=== PATIENT | male | born 1950 | race Caucasian/White ===

== ENCOUNTER 2024-01-29 09:37 | Outpatient (OUT) | payer OTHER, SELFPAY ==
--- NOTE | 2024-01-29 09:47 | CA_ITS ---
Patient Name: CHERYL MANN MR#: [id number] : 1950 Exam Date: 01/29/2024 Ordering Doctor: LAWSON VALDOVINOS ECHOCARDIOGRAM REPORT PROCEDURE: CA ECHO DOPPLER COMPLETE INDICATIONS: Aortic stenosis COMPARISON: None. DESCRIPTION: COMPLETE ECHOCARDIOGRAM Real-time transthoracic echocardiography with 2D, M-mode, spectral and color flow Doppler performed. QUALITY: Technical quality was good. LEFT VENTRICLE: Normal chamber size. Mild concentric left ventricular hypertrophy. Normal systolic function. LV EF: Normal left ventricular ejection fraction, (55%). DIASTOLIC: Mild diastolic dysfunction. ATRIAL SEPTUM: LEFT ATRIUM: Mild dilatation. RIGHT ATRIUM: Mild dilatation. RIGHT VENTRICLE: Normal chamber size. Normal right ventricular systolic function. TRICUSPID VALVE: Normal mobility and thickness. No stenosis with trivial regurgitation. No evidence of pulmonary hypertension. RVSP 23 mmHg MITRAL VALVE: Moderately thickened with decreased mobility. No significant mitral valve stenosis. Mild mitral annular calcification. Mild to moderate mitral regurgitation. MVA 4.7 cm2, Mean gradient 5 mmHg, AORTIC VALVE: Normal trileaflet appearance. Moderately calcified aortic valve. Moderately diminished mobility. Doppler velocity suggest moderate aortic valve stenosis. DVI 0.33, WILLIAM 1.14 cm2, Vmax 2.2 m/s, Mean gradient 12 mmHg. No aortic regurgitation. AORTIC ROOT: Normal diameter and appearance, measuring 3.5 cm. Normal size ascending aorta measuring 3.5 cm. PULMONIC VALVE: Normal thickness and mobility. No stenosis. Trivial regurgitation. PERICARDIUM: No evidence of pericardial effusion. IVC: Collapses with inspirations. Normal size. PLEURA: CONCLUSION: 1. Mild concentric left ventricular hypertrophy with normal systolic function. LVEF is 55%. 2. Normal right ventricular size and systolic function. 3. Mild diastolic dysfunction. 4. Moderate aortic valve stenosis. 5. Mild to moderate mitral regurgitation. 6. Normal right-sided pressures. Adult Echocardiography Procedure Report Left Ventricle LVEDD (3.7 - 5.6 cm): 3.82 cm LVESD (2.2 - 4.0 cm): 2.65 cm LVIVS thickness (0.6 - 1.2 cm): 1.33 cm LVPW thickness (0.5 - 1.0 cm): 1.17 cm e': 0.05 m/s E - e': 24.72 LVOT Max Gradient: 2.14 mm[Hg] LVOT Area (cm2): 0.73 m/s Peak Velocity (LVOT): 0.73 m/s Mean Velocity (LVOT): 0.50 m/s LVOT Diameter 2.1 cm Left Ventricular Ejection Fraction: 55 % Left Atrium LA Volume Index (2D A2C): 34.14 ml/m2 Left Atrium Systolic Dimension: 3.44 cm Mitral Valve MV E to A Ratio: 0.76 Mitral Valve A-Wave Peak Velocity: 1.56 m/s Mitral Valve E-Wave Peak Velocity: 1.18 m/s Right Ventricle RV Internal Diastolic Dimension: 2.51 cm Aorta AO Root Diam: 3.49 cm Ascending Ao Diam: 3.46 cm Aortic Valve AoV Area (Peak Sebastian): 0.75 cm2, 0.79 cm2 AoV Area (VTI): 0.87 cm2, 0.86 cm2 Peak Velocity(Antegrade Flow): 2.21 m/s, 2.36 m/s, 2.43 m/s, 2.36 m/s Peak Gradient(Antegrade Flow): 19.60 mm[Hg], 22.32 mm[Hg], 23.69 mm[Hg], 22.32 mm[Hg] Mean Velocity(Antegrade Flow): 1.67 m/s, 1.81 m/s, 1.83 m/s, 1.68 m/s Mean Gradient(Antegrade Flow): 12.31 mm[Hg], 14.29 mm[Hg], 14.63 mm[Hg], 12.51 mm[Hg] Velocity Time Integral: 47.43 cm, 47.00 cm, 48.54 cm, 45.04 cm Tricuspid Valve Peak Velocity (Regurgitant Flow): 2.22 m/s, 2.10 m/s, 2.13 m/s Pulmonic Valve Mean Gradient: 2.05 mm[Hg] Mean Velocity: 0.66 m/s Peak Velocity: 0.97 m/s, 1.03 m/s Peak Gradient: 4.26 mm[Hg], 3.74 mm[Hg] Right Atrium Right Atrium Systolic Pressure: 22.44 ml, 22.44 ml Dictated by: Gerry Tariq M.D. on 01/29/2024 at 18:13 Approved by: Gerry Tariq M.D. on 01/29/2024 at 18:22
== END 2024-01-29 09:38 | disposition home or self-care (01) ==
PROVIDERS: PCP Family Medicine; Visit Provider Family Medicine
DX: I35.0 Nonrheumatic aortic (valve) stenosis (principal)
CPT/HCPCS: 93306; 93356

== ENCOUNTER 2024-05-22 12:44 | Outpatient (OUT) | payer OTHER, SELFPAY ==
--- NOTE | 2024-05-22 12:48 | CT_ITS ---
The [address] [address] Patient Name: CHERYL MANN MRN: [id number] date: 1950 Sex: M Assigned Patient Location: CT Current Patient Location: Accession/Order Number: [id number] Exam Date: 05/22/2024 13:48 Report Date: 05/25/2024 17:45 At the request of: NON-STAFF PHYSICIAN Procedure: CT chest wo con EXAMINATION: CT chest wo con, CT abdomen pelvis wo con, 05/22/2024 1:48 PM EDT HISTORY: Prostate cancer, rising PSA COMPARISON: CT chest, abdomen and pelvis dated 10/12/2020. No recent imaging is available for comparison. TECHNIQUE: CT scan of the chest, abdomen and pelvis was performed without IV contrast. Oral contrast was administered. CT dose reduction technique was used, including Automated Exposure Control. FINDINGS: Chest Thyroid gland appears unremarkable. Trachea and mainstem bronchi are patent. There is no mediastinal or axillary adenopathy. Evaluation for hilar adenopathy is limited due to the lack of intravenous contrast. There are mild emphysematous changes within the lungs. There are a few new solid noncalcified lung nodules, measuring up to 4.6 mm within right middle lobe. There is no pleural or pericardial effusion. There is no lung consolidation. There is no aortic aneurysm. Aortic valve, mitral annulus and coronary arteries are heavily calcified. There are advanced multilevel arthritic changes of the thoracic spine. Abdomen and pelvis There are small layering gallstones. There is a 5 mm nonobstructing left kidney upper pole calculus and a 15 mm left kidney interpolar region cyst. There is also suggestion of subcentimeter right kidney interpolar region cyst. Unenhanced liver, spleen, pancreas and adrenal glands are normal. Bowel loops are normal in course and caliber, there is no obstruction or free air. Appendix is normal. There is suggestion of prior prostatectomy. There is no ascites or adenopathy. There is severe aortoiliac atherosclerotic disease. There are advanced multilevel arthritic changes of the lumbar spine. No suspicious osseous lesion is noted. CT/CT chest wo con IMPRESSION: 1. New sub-5 mm solid noncalcified lung nodules. Follow-up chest CT scan is recommended in 6 months for reassessment. 2. No definite evidence of malignancy within the upper abdomen and pelvis on this limited noncontrast exam. 3. Cholelithiasis. Electronically authenticated by: BO REYNOLDS Date: 05/25/2024 17:45
--- NOTE | 2024-05-22 12:48 | CT_ITS ---
[address] [address] Patient Name: CHERYL MANN MRN: [id number] date: 1950 Sex: M Assigned Patient Location: CT Current Patient Location: Accession/Order Number: [id number] Exam Date: 05/22/2024 13:48 Report Date: 05/25/2024 17:45 At the request of: NON-STAFF PHYSICIAN Procedure: CT abdomen pelvis wo con EXAMINATION: CT chest wo con, CT abdomen pelvis wo con, 05/22/2024 1:48 PM EDT HISTORY: Prostate cancer, rising PSA COMPARISON: CT chest, abdomen and pelvis dated 10/12/2020. No recent imaging is available for comparison. TECHNIQUE: CT scan of the chest, abdomen and pelvis was performed without IV contrast. Oral contrast was administered. CT dose reduction technique was used, including Automated Exposure Control. FINDINGS: Chest Thyroid gland appears unremarkable. Trachea and mainstem bronchi are patent. There is no mediastinal or axillary adenopathy. Evaluation for hilar adenopathy is limited due to the lack of intravenous contrast. There are mild emphysematous changes within the lungs. There are a few new solid noncalcified lung nodules, measuring up to 4.6 mm within right middle lobe. There is no pleural or pericardial effusion. There is no lung consolidation. There is no aortic aneurysm. Aortic valve, mitral annulus and coronary arteries are heavily calcified. There are advanced multilevel arthritic changes of the thoracic spine. Abdomen and pelvis There are small layering gallstones. There is a 5 mm nonobstructing left kidney upper pole calculus and a 15 mm left kidney interpolar region cyst. There is also suggestion of subcentimeter right kidney interpolar region cyst. Unenhanced liver, spleen, pancreas and adrenal glands are normal. Bowel loops are normal in course and caliber, there is no obstruction or free air. Appendix is normal. There is suggestion of prior prostatectomy. There is no ascites or adenopathy. There is severe aortoiliac atherosclerotic disease. There are advanced multilevel arthritic changes of the lumbar spine. No suspicious osseous lesion is noted. CT/CT abdomen pelvis wo con IMPRESSION: 1. New sub-5 mm solid noncalcified lung nodules. Follow-up chest CT scan is recommended in 6 months for reassessment. 2. No definite evidence of malignancy within the upper abdomen and pelvis on this limited noncontrast exam. 3. Cholelithiasis. Electronically authenticated by: BO REYNOLDS Date: 05/25/2024 17:45
--- OUTSIDE RECORDS SUMMARY | 2024-05-22 12:56 | XMS_ITS | CCD ---
Author Organization [facility] Care Team Providers Care Polishing Machine Operator Name Role Phone JESUS ERICKSON Unavailable Unavailabl e GEORGINA, JESUS Unavailable Unavailabl RAINA Watkins Unavailable Unavailable MICHELINE PETERSON Unavailable Unavailable LAWSON VIDES Primary Care Physician Ksenia Magdaleno Unavailable Unavailable Lawson Bolanos Primary Care Provider DO Lawson Vides Primary Care Provider DO Rodo Garcia Emergency Provider Rodo Garcia Attending Unavailable Rodo Garcia Admitting Unavailable Lawson Vides Primary Care Unavailable LAWSON INFANTE Referring Unavailable POCMANJEET, LAWSON Castro Attending Unavailable KIZZY ESPINOSA Attending Unavailable POCMANJEET, LAWSON Castro Referring Unavailable KIZZY ESPINOSA Attending Unavailable POCOS, LAWSON Castro Referring Unavailable KIZZY ESPINOSA Attending Unavailable POCLAWSON BURROUGHS Referring Unavailable LAWSON INFANTE Attending Unavailable Medications Current Medications Medication Drug Class(es) Dates Sig (Normalized) Sig (Original) aspirin 81 mg delayed release oral tablet (2 sources) Platelet Aggregation Inhibitor, Nonsteroidal Anti-inflammatory Drug Start: 06-08-2022 take 1 tablet by mouth once daily Aspirin (Aspir-81) 81 mg Tablet,Delayed Release (Dr/Ec) Active 81 MG PO Daily June 08, 2022 12:00am aspirin, enteric coated (ADULT LOW DOSE ASPIRIN) 81 mg EC tablet Take 81 mg by mouth every other day. 0 Active Comment on above: Take 81 mg by mouth every other day. atorvastatin 20 mg oral tablet (2 sources) HMG-CoA Reductase Inhibitor Start: 2 take 1 tablet by mouth once daily Atorvastatin (Lipitor) 20 mg Tablet Active 20 MG PO Daily June 08, 2022 12:00am take 1 tablet by mouth once caitlin y atorvastatin (LIPITOR) 80 mg tablet Take 80 mg by mouth once daily. 0 Active Comment on above: Take 80 mg by mouth once daily. Completed/Discontinued Medications Medication Drug Class(es) Dates Sig (Normalized) Sig (Original) MULTIVITAMIN ORAL (1 source) MULTIVITAMIN ORA L Take by mouth. 0 Active Comment on above: Take by mouth. Huuaq-2-XQA-EPA-Fish Oil (FISH OIL) 1,000 mg (120 mg-180 mg) cap (1 source) take 1 capsule by mouth twice daily Yzvic-4-LUL-EPA-Fish Oil (FISH OIL) 1,000 mg (120 mg-180 mg) cap Take 2 g by mouth twice daily. 0 Active Comment on above: Take 2 g by mouth tw ice daily. ubidecarenone 100 mg oral capsule (1 source) coenzyme Q10 (COQ-10) 100 mg cap capsule Take 100 mg by mouth twice daily. 0 Active Comment on above: Take 100 mg by mouth twice daily. vitamin e 450 mg oral capsule (1 source) vitamin E, dl,tocopheryl acet, (VITAMIN E, DL, ACETATE,) 1,000 unit cap Take by mouth. 0 Active Comment on above: Take by mouth. Problems Active Problems Problem Classification Problem Date Documented Da te Episodic/Chronic Abdominal pain (4 sources) Unspecified abdominal pain; Translations: [UNSPECIFIED ABDOMINAL PAIN] Onset: 07-27-2017 Episodic Calculus of urinary tract (1 source) Calculus of ureter; Translations: [CALCULUS OF URETER] Onset: 11-14-2017 Episodic Headache; including migraine (1 source) Headache; Translations: [Headache] 06-08-2022 Episodic Headache; including migraine (1 source) Headache; including migraine; Translations: [Headache, unspecified] Onset: 06-08-2022 Other gastrointestinal disorders (1 source) Diarrhea, unspecified; Translations: [DIARRHEA UNSPECIFIED] Onset: 11-14-2017 Episodic Other liver diseases (1 source) Abnormal levels of other serum enzymes; Translations: [ABNORMAL LEVELS OTHER SERUM ENZYMES] Onset: 11-14-2017 Episodic Past or Other Problems Problem Classification Problem Date Documented Da te Episodic/Chronic Cardiac dysrhythmias (2 sources) Palpitations; Translations: [Palpitations] Onset: 06-08-2022 06-08-2022 Episodic Other circulatory disease (1 source) Elevated blood-pressure reading, without diagnosis of hypertension; Translations: [Elevated blood-pressure reading, without diagnosis of hypertension] Onset: 06-08-2022 Episodic Results Test Name Value Interpretation Reference Range Facility Activated partial thrombopla stin time (aPTT) in platelet poor plasma by coagulation aOrdered By: Rodo Garcia on 06-08-2022 aPTT Coag (PPP) [Time] 29.8 s 25.1-36.5 [facility] Albumin [Mass/volume] in Ser um or PlasmaOrdered By: Rodo Garcia on 06-08-2022 Albumin [Mass/Vol] 4.1 g/dL 3.2-5.5 [facility] Basophils Auto (Bld) [#/Vol] Ordered By: Rodo Garcia on 06-08-2022 Basophils (Bld) [#/Vol] 0.0 10*3/uL 0.0-0.2 [facility] Basophils/100 WBC Auto (Bld) Ordered By: Rodo Garcia on 06-08-2022 Basophils/100 WBC (Bld) 0.3 % . [facility] CT angio chest PE protocolon 06-08-2022 CT angio chest PE protocol [facility] [place] [address] CT Scan Report Signed Patient: Dung Mann MR#: [id number] 80 : 1950 Acct:[id number] Age/Sex: 72 / M ADM Date: 06/08/22 Loc: ER Room: Type: [facility] ER Attending Dr: Copies to: Rodo Garcia DO Ordering Provider: Rodo Garcia DO Date of Service: 06/08/22 CT/CT angio chest PE protocol: palpitations elevated d-deirm CT ANGIOGRAM OF THE CHEST, PULMONARY EMBOLISM PROTOCOL: CLINICAL INFORMATION: Chest pain radiating to left arm. Elevated d-dimer COMPARISON: Chest performed today TECHNIQUE: Following intravenous injection of contrast CT scans of the chest were obtained using pulmonary embolism protocol. Coronal and sagittal reconstructed images, as well as volume rendered CT pulmonary angiographic images were also submitted.The CT exam was performed using one or more of the following dose reduction techniques: Automated exposure control, adjustment of the MA and/or Kv according to patient size, or use of the iterative reconstruction technique. FINDINGS: Pulmonary Vasculature: Contrast bolus is adequate for evaluation of pulmonary embolism. Pulmonary trunk appears nondilated. No filling defects are identified to suggest pulmonary embolism. Mediastinum : Thoracic aorta is normal in caliber. No pericardial effusion. No lymphadenopathy. The esophagus is grossly unremarkable. Lungs: No focal consolidation, pneumothorax or pleural effusion. Mild reticular change. Mild lung scarring. Mild emphysema. Upper abdomen: No acute findings Soft tissue/bones: Soft tissues surrounding the chest wall demonstrate no acute findings. Osseous structures demonstrate degenerative change. CT/CT angio chest PE protocol IMPRESSION: NO EVIDENCE OF ACUTE PULMONARY EMBOLISM OR PROCESS. Impression dictated by: Micky Mims Jr., D.OKvng06/08/2022 3:25 PM Dictation Location: [place] [address] Transcribed By: [facility] 06/08/22 1525 Dictated By: Micky Mims Jr, DO 06/08/22 1520 Signed By: 06/08/[address] [facility] [address] head/brain wo conon 06-08 CT head/brain wo con [facility] [place] [address] [place] [address] CT Scan Report Signed Patient: Dung Mann MR#: [id number] 80 : 1950 Acct:[id number] Age/Sex: 72 / M ADM Date: 06/08/22 Loc: ER Room: Type: [facility] ER Attending Dr: Copies to: Rodo Garcia DO Ordering Provider: Rodo Garcia DO Date of Service: 06/08/22 CT/CT head/brain wo con: headache Unenhanced head CT TECHNIQUE: Contiguous axial imaging of the head. The CT exam was performed using one or more the following dose reduction techniques: Automated exposure control, adjustment of the MA and/or Kv according to patient size, or use of the iterative reconstruction technique. COMPARISON:None HISTORY:Headache for 3 days. Elevated blood pressure. The ventricles are normal in size and position. Adequate pond-white matter differentiation identified. No intracranial hemorrhage, mass effect or herniation is identified. No recent vascular distribution infarction is seen. No abnormal extra-axial fluid collections identified. Sinuses, orbits and mastoid air cells are unremarkable. Bony structures are intact. Atherosclerosis of carotid siphons present. CT/CT head/brain wo con IMPRESSION: No acute intracranial findings. Impression dictated by: Ilia Jhaveri M.D.06/08/2022 2:48 PM Dictation Location: [place] [address] Transcribed By: [facility] 06/08/22 144 Dictated By: Ilia Jhaveri DO 06/08/22 144 Signed By: 06/08/22 144 Normal [facility] Complete Blood Count Auto Di ffon 06-08-2022 Basophils (Bld) [#/Vol] 0.0 10*3/uL Normal 0.0-0.2 [facility] Comment on above: Result Comment: PERF ORMED BY: [place] [address] PATHOLOGIST ANCILLARY SERVICES MANAGER THERAPY TERESITA PAULSON M.D. Performed By: #### C BC, PT, PTT, CMP, HS TROP #### [address] Basophils/100 WBC (Bld) 0.3 % Normal . [facility] Comment on above: Performed By: #### C BC, PT, PTT, CMP, HS TROP #### [address] Eosinophils (Bld) [#/Vol] 0.0 10*3/uL Normal 0.0-0.45 [facility] Comment on above: Performed By: #### C BC, PT, PTT, CMP, HS TROP #### [address] Eosinophils/100 WBC (Bld) 0.2 % Normal . [facility] Comment on above: Performed By: #### C BC, PT, PTT, CMP, HS TROP #### [address] Erythrocyte distribution width (RBC) [Ratio] 13.8 % Normal 12.0-14.8 [facility] Comment on above: Performed By: #### C BC, PT, PTT, CMP, HS TROP #### [address] Hematocrit (Bld) [Volume fraction] 47.5 % Normal 38.8-50.0 [facility] Comment on above: Performed By: #### C BC, PT, PTT, CMP, HS TROP #### [address] Hemoglobin (Bld) [Mass/Vol] 15.9 g/dL Normal 13.0-17.0 [facility] Comment on above: Performed By: #### C BC, PT, PTT, CMP, HS TROP #### [address] Lymphocytes (Bld) [#/Vol] 0.6 10*3/uL Low 1.00-4.8 [facility] Comment on above: Performed By: #### C BC, PT, PTT, CMP, HS TROP #### [address] Lymphocytes/100 WBC (Bld) 7.6 % Normal . [facility] Comment on above: Performed By: #### C BC, PT, PTT, CMP, HS TROP #### [address] MCH (RBC) [Entitic mass] 31.4 pg Normal 27.5-35.2 [facility] Comment on above: Performed By: #### C BC, PT, PTT, CMP, HS TROP #### [address] MCV (RBC) [Entitic vol] 94.0 fL Normal 83.5-101 [facility] Comment on above: Performed By: #### C BC, PT, PTT, CMP, HS TROP #### [address] Mean Corpuscular HGB Conc 33.4 g/dL Normal 32.5-35.6 [facility] Comment on above: Performed By: #### C BC, PT, PTT, CMP, HS TROP #### [address] Monocytes (Bld) [#/Vol] 0.7 10*3/uL Normal 0.0-0.8 [facility] Comment on above: Performed By: #### C BC, PT, PTT, CMP, HS TROP #### [facility] [address] Monocytes/100 WBC (Bld) 9.0 % Normal . [facility] Comment on above: Performed By: #### C BC, PT, PTT, CMP, HS TROP #### [facility] [address] Neutrophils (Bld) [#/Vol] 6.9 10*3/uL Normal 1.8-7.7 [facility] Comment on above: Performed By: #### C BC, PT, PTT, CMP, HS TROP #### [facility] [address] Neutrophils/100 WBC (Bld) 82.9 % Normal . [facility] Comment on above: Performed By: #### C BC, PT, PTT, CMP, HS TROP #### [facility] [address] [place] [address] [place] Nucleated RBC/100 WBC (Bld) [Ratio] 0.0 % Normal 0-0.5 [facility] Comment on above: Performed By: #### C BC, PT, PTT, CMP, HS TROP #### [facility] [address] [place] [address] [place] Platelet mean volume (Bld) [Entitic vol] 8.5 fL Normal 6.6-10.1 [facility] Comment on above: Performed By: #### C BC, PT, PTT, CMP, HS TROP #### [facility] [address] [place] [address] [place] Platelets (Bld) [#/Vol] 178 10*3/uL Normal 150-450 [facility] Comment on above: Performed By: #### C BC, PT, PTT, CMP, HS TROP #### [facility] [address] [place] [address] [place] RBC (Bld) [#/Vol] 5.05 10*6/uL Normal 3.90-5.60 [facility] Comment on above: Performed By: #### C BC, PT, PTT, CMP, HS TROP #### [address] WBC (Bld) [#/Vol] 8.3 10*3/uL Normal 4.5-11.0 [facility] Comment on above: Performed By: #### C BC, PT, PTT, CMP, HS TROP #### [address] Comprehensive Metabolic Pane mame 06-08-2022 Albumin [Mass/Vol] 4.1 g/dL Normal 3.2-5.5 [facility] Comment on above: Performed By: #### C BC, PT, PTT, CMP, HS TROP #### [address] Albumin/Globulin [Mass ratio] 1.4 {ratio} Normal [facility] Comment on above: Performed By: #### C BC, PT, PTT, CMP, HS TROP #### [address] ALP [Catalytic activity/Vol] 98 U/L High 32-92 [facility] Comment on above: Performed By: #### C BC, PT, PTT, CMP, HS TROP #### [address] ALT [Catalytic activity/Vol] 35 U/L Normal 10-60 [facility] Comment on above: Performed By: #### C BC, PT, PTT, CMP, HS TROP #### [address] Anion gap [Moles/Vol] 15.2 mmol/L High 6.0-15.0 [facility] Comment on above: Performed By: #### C BC, PT, PTT, CMP, HS TROP #### [address] AST [Catalytic activity/Vol] 26 U/L Normal 10-42 [facility] Comment on above: Performed By: #### C BC, PT, PTT, CMP, HS TROP #### [facility] [address] Bilirubin [Mass/Vol] 1.4 mg/dL High 0.3-1.2 [facility] Comment on above: Result Comment: Samp les from patients who have taken Naproxen have shown spurious elevation in Total Bilirubin levels. A metabolite of Naproxen, O-desmethylnaproxen, has been shown to interfere with the Jendrassik-Grof method for measuring Total Bilirubin. Performed By: #### C BC, PT, PTT, CMP, HS TROP #### [facility] [address] Calcium [Mass/Vol] 9.1 mg/dL Normal 8.2-10.2 [facility] Comment on above: Performed By: #### C BC, PT, PTT, CMP, HS TROP #### [facility] [address] Chloride [Moles/Vol] 100 mmol/L Normal 95-114 [facility] Comment on above: Performed By: #### C BC, PT, PTT, CMP, HS TROP #### [facility] [address] CO2 [Moles/Vol] 25.0 mmol/L Normal 22.0-30.0 [facility] Comment on above: Performed By: #### C BC, PT, PTT, CMP, HS TROP #### [facility] [address] [place] [address] [place] Creatinine [Mass/Vol] 1.04 mg/dL Normal 0.64-1.27 [facility] Comment on above: Performed By: #### C BC, PT, PTT, CMP, HS TROP #### [facility] [address] [place] [address] [place] Creatinine Clr Calc Pharmacy 56.77 Normal [facility] Comment on above: Result Comment: PERF ORMED BY: [place] [address] PATHOLOGIST ANCILLARY SERVICES MANAGER THERAPY JIANLAN SUN M.D. Performed By: #### C BC, PT, PTT, CMP, HS TROP #### [address] Estimated GFR ( Jordyn > 60 [facility] Comment on above: Result Comment: GFR estimated reference range: According to KDOQI guidelines, <60 ml/min/1.73m2 is sufficient to diagnose a patient with chronic kidney disease. Performed By: #### C BC, PT, PTT, CMP, HS TROP #### [address] Estimated GFR (Non- Am > 60 [facility] Comment on above: Performed By: #### C BC, PT, PTT, CMP, HS TROP #### [address] Globulin (S) [Mass/Vol] 3.0 g/dL [facility] Comment on above: Performed By: #### C BC, PT, PTT, CMP, HS TROP #### [address] Glucose [Mass/Vol] 142 mg/dL High 70-100 [facility] Comment on above: Result Comment: [place] om Glucose Reference Range is dependent on time and content of last meal. Glucose of more than 200 mg/dL in a nonstressed, ambulatory subject supports the diagnosis of Diabetes Mellitus. ADA recommended reference range Performed By: #### C BC, PT, PTT, CMP, HS TROP #### [address] Potassium [Moles/Vol] 4.2 mmol/L Normal 3.5-5.1 [facility] Comment on above: Performed By: #### C BC, PT, PTT, CMP, HS TROP #### [address] Protein [Mass/Vol] 7.1 g/dL Normal 6.1-7.9 [facility] Comment on above: Performed By: #### C BC, PT, PTT, CMP, HS TROP #### [address] Sodium [Moles/Vol] 136 mmol/L Normal 136-146 [facility] Comment on above: Performed By: #### C BC, PT, PTT, CMP, HS TROP #### [address] Urea nitrogen [Mass/Vol] 15 mg/dL Normal 9-23 [facility] Comment on above: Performed By: #### C BC, PT, PTT, CMP, HS TROP #### [address] Creatinine and Glomerular fi ltration rate.predicted panel (S/P/Bld)Ordered By: Rodo Garcia on 06-08-2022 Creatinine [Mass/Vol] 1.04 mg/dL 0.64-1.27 [facility] D-Dimer High Sensitivityon 1 08-08-2021 D-Dimer High Sensitivity 425 ng/mL High 0-243 [facility] Comment on above: Result Comment: The reference range for D-dimer is <243 ng/mL D-dimer units. D-dimer results must be used in conjunction with a clinical pretest probability (PTP) assessment model for deep vein thrombosis (DVT) and pulmonary embolism (PE). Results <230 ng/mL d-dimer units can be used as a negative predictor in patients with low or moderate probability for DVT/PE. Results above the exclusion threshold of 230 ng/ml D-dimer units for DVT/PE may indicate the need for further diagnostic testing. D-Dimer can be increased in hospitalized patients due to co-morbid conditions. PERFORMED BY: [place] [address] PATHOLOGIST ANCILLARY SERVICES MANAGER THERAPY TERESITA PAULSON M.D. Performed By: #### D DIMER #### [address] ECG 12 lead ECGon 06-08-2022 ECG 12 lead ECG [facility] Main [place] [address] [place] [address] Electrocardiograph Report Signed Patient: Dung Mann MR#: [id number] 80 : 1950 Acct:[id number] Age/Sex: 72 / M ADM Date: 06/08/22 Loc: ER Room: Type: [facility] ER Attending Dr: Ordering Provider: Rodo Garcia DO Date of Service: 06/08/2210/26/1323 ECG/ECG 12 lead ECG: Headache Copies to: Test Reason : Blood Pressure : 169/105 mmHG Vent. Rate : 117 BPM Atrial Rate : 117 BPM P-R Int : 166 ms QRS Dur : 080 ms QT Int : 318 ms P-R-T Axes : 077 052 063 degrees QTc Int : 443 ms Sinus tachycardia Otherwise normal ECG No previous ECGs available Confirmed by Rodo Garcia DO ([id number]) on 06/08/2022 2:54:08 PM Referred By: Electronically Signed By:Rodo Garcia DO Transcribed By: [facility] Signed By Rodo Garcia DO 2 1454 Normal [facility] Eosinophils Auto (Bld) [#/Vo l]Ordered By: Rodo Garcia on 06-08-2022 Eosinophils (Bld) [#/Vol] 0.0 10*3/uL 0.0-0.45 [facility] Eosinophils/100 WBC Auto (Bl d)Ordered By: Rodo Garcia on 06-08-2022 Eosinophils/100 WBC (Bld) 0.2 % . [facility] Erythrocyte distribution wid th Auto (RBC) [Ratio]Ordered By: Rodo Garcia on 06-08-2022 Erythrocyte distribution width (RBC) [Ratio] 13.8 % 12.0-14.8 [facility] Estimated glomerular filtrat ion rate (GFR) non- AmericanOrdered By: Rodo Garcia on 06-08-2022 GFR/1.73 sq M.predicted among non-blacks MDRD (S/P/Bld) [Vol rate/Area] > 60 mL/Min [facility] Globulin Calc (S) [Mass/Vol] Ordered By: Rood Garcia on 06-08-2022 Globulin (S) [Mass/Vol] 3.0 g/dL [facility] Hematocrit Auto (Bld) [Volum e fraction]Ordered By: Rodo Garcia on 06-08-2022 Hematocrit (Bld) [Volume fraction] 47.5 % 38.8-50.0 [facility] Hemoglobin [Mass/volume] in BloodOrdered By: Rodo Garcia on 06-08-2022 Hemoglobin (Bld) [Mass/Vol] 15.9 g/dL 13.0-17.0 [facility] Laboratory - CoagulationOrde red By: Rodo Garcia on 06-08-2022 PT Coag (PPP) [Time] 11.1 s 9.0-12.9 [facility] - Hematology and Cell countsOrdered By: Rodo Garcia on 06-08-2022 Nucleated RBC/100 WBC (Bld) [Ratio] 0.0 % 0-0.5 [facility] Leukocytes [#/volume] in Blo od by Automated countOrdered By: Rodo Garcia on 06-08-2022 WBC (Bld) [#/Vol] 8.3 10*3/uL 4.5-11.0 [facility] Lymphocytes Auto (Bld) [#/Vo l]Ordered By: Rodo Garcia on 06-08-2022 Lymphocytes (Bld) [#/Vol] 0.6 10*3/uL 1.00-4.8 [facility] Lymphocytes/100 WBC Auto (Bl d)Ordered By: Rodo Garcia on 06-08-2022 Lymphocytes/100 WBC (Bld) 7.6 % . [facility] MCH Auto (RBC) [Entitic mass ]Ordered By: Rodo Garcia on 06-08-2022 MCH (RBC) [Entitic mass] 31.4 pg 27.5-35.2 [facility] MCHC Auto (RBC) [Mass/Vol]Or dered By: Rodo Garcia on 06-08-2022 MCHC (RBC) [Mass/Vol] 33.4 g/dL 32.5-35.6 [facility] MCV Auto (RBC) [Entitic vol] Ordered By: Rodo Garcia on 06-08-2022 MCV (RBC) [Entitic vol] 94.0 fL 83.5-101 [facility] Monocytes Auto (Bld) [#/Vol] Ordered By: Rodo Garcia on 06-08-2022 Monocytes (Bld) [#/Vol] 0.7 10*3/uL 0.0-0.8 [facility] Monocytes/100 WBC Auto (Bld) Ordered By: Rodo Garcia on 06-08-2022 Monocytes/100 WBC (Bld) 9.0 % . [facility] Neutrophils Auto (Bld) [#/Vo l]Ordered By: Rodo Garcia on 06-08-2022 Neutrophils (Bld) [#/Vol] 6.9 10*3/uL 1.8-7.7 [facility] Neutrophils/100 WBC Auto (Bl d)Ordered By: Rodo Garcia on 06-08-2022 Neutrophils/100 WBC (Bld) 82.9 % . [facility] No Panel InformationOrdered By: Rodo Garcia on 06-08-2022 D-Dimer Quantitative (PE/DVT) 425 ng/mL 0-243 [facility] Comment on above: The reference range for D-dimer is <243 ng/mL D-dimer units.D-dimer results must be used in conjunction with a clinicalpretest probability (PTP) assessment model for deep veinthrombosis (DVT) and pulmonary embolism (PE). Results <230ng/mL d-dimer units can be used as a negative predictor inpatients with low or moderate probability for DVT/PE.Results above the exclusion threshold of 230 ng/ml D-dimerunits for DVT/PE may indicate the need for furtherdiagnostic testing.D-Dimer can be increased in hospitalized patients due toco-morbid conditions. Estimated GFR () > 60 mL/Min [facility] Comment on above: GFR estimated refere nce range: According to KDOQI guidelines, <60 ml/min/1.73m2 is sufficient to diagnose a patient with chronic kidney disease. Pharmacy Creatinine Clearance (Chem 56.77 [facility] Partial Thromboplastin Timeo n 06-08-2022 aPTT Coag (Bld) [Time] 29.8 s Normal 25.1-36.5 [facility] Comment on above: Result Comment: PERF ORMED BY: [address] [place] [address] PATHOLOGIST ANCILLARY SERVICES MANAGER THERAPY TERESITA PAULSON M.D. Performed By: #### C BC, PT, PTT, CMP, HS TROP #### [address] [place] [address] [place] Platelet mean volume Auto (B ld) [Entitic vol]Ordered By: Rodo Garcia on 06-08-2022 Platelet mean volume (Bld) [Entitic vol] 8.5 fL 6.6-10.1 [facility] Platelet poor plasma interna tional normalized ratio (INR) by coagulation assay (relatOrdered By: Rodo Garcia on 06-08-2022 INR Coag (PPP) [Relative time] 1.0 {INR} [facility] Comment on above: INR Therapeutic Rang e A) Pre- and Peroperative OAT started two weeks before surgery. NOT HIP SURGERY: 1.5 - 2.5 HIP SURGERY: 2 - 3B) Primary and secondary prevention of venous THROMBOSIS: 2 - 3C) Active venous thrombosis, pulmonary embolismand prevention of recurrent venous thrombosis: 2 - 3D) Prevention of arterial thromboembolismincluding patients with mechanical heart valves: 3 - 4.5 Platelets Auto (Bld) [#/Vol] Ordered By: Rodo Garcia on 06-08-2022 Platelets (Bld) [#/Vol] 178 10*3/uL 150-450 [facility] Protein [Mass/volume] in Ser um or PlasmaOrdered By: Rodo Garcia on 06-08-2022 Protein [Mass/Vol] 7.1 g/dL 6.1-7.9 [facility] Prothrombin Time INRon 06-08 INR Coag (PPP) [Relative time] 1.0 {INR} Normal [facility] Comment on above: Result Comment: INR Therapeutic Range A) Pre- and Peroperative OAT started two weeks before surgery. NOT HIP SURGERY: 1.5 - 2.5 HIP SURGERY: 2 - 3 B) Primary and secondary prevention of venous THROMBOSIS: 2 - 3 C) Active venous thrombosis, pulmonary embolism and prevention of recurrent venous thrombosis: 2 - 3 D) Prevention of arterial thromboembolism including patients with mechanical heart valves: 3 - 4.5 Performed By: #### C BC, PT, PTT, CMP, HS TROP #### [facility] [address] [id number] [facility] PT Coag (PPP) [Time] 11.1 s Normal 9.0-12.9 [facility] Comment on above: Performed By: #### C BC, PT, PTT, CMP, HS TROP #### [facility] [address] RBC Auto (Bld) [#/Vol]Ordere d By: Rodo Garcia on 06-08-2022 RBC (Bld) [#/Vol] 5.05 10*6/uL 3.90-5.60 [facility] Serum or plasma alanine rodriguez otransferase measurement without P-5'-P (enzymatic activiOrdered By: Rodo Garcia on 06-08-2022 ALT No additional P-5'-P [Catalytic activity/Vol] 35 U/L 10-60 [facility] Serum or plasma albumin/glob ulin mass ratioOrdered By: Rodo Garcia on 06-08-2022 Albumin/Globulin [Mass ratio] 1.4 {ratio} [facility] Serum or plasma alkaline keara sphatase measurement (enzymatic activity/volume)Ordered By: Rodo Garcia on 06-08-2022 ALP [Catalytic activity/Vol] 98 U/L 32-92 [facility] Serum or plasma anion gap de terminationOrdered By: Rodo Garcia on 06-08-2022 Anion gap [Moles/Vol] 15.2 mmol/L 6.0-15.0 [facility] Serum or plasma aspartate am inotransferase measurement (enzymatic activity/volume)Ordered By: Rodo Garcia on 06-08-2022 AST [Catalytic activity/Vol] 26 U/L 10-42 [facility] Serum or plasma calcium kate urement (mass/volume)Ordered By: Rodo Garcia on 06-08-2022 Calcium [Mass/Vol] 9.1 mg/dL 8.2-10.2 [facility] Serum or plasma chloride shawn surement (moles/volume)Ordered By: Rodo Garcia on 06-08-2022 Chloride [Moles/Vol] 100 mmol/L 95-114 [facility] Serum or plasma glucose kate urement (mass/volume)Ordered By: Rodo Garcia on 06-08-2022 Glucose [Mass/Vol] 142 mg/dL 70-100 [facility] Comment on above: ADA recommended refe rence rangeRandom Glucose Reference Range is dependent on time and content of last meal. Glucose of more than 200 mg/dL in a nonstressed, ambulatory subject supports the diagnosis of Diabetes Mellitus. Serum or plasma potassium me asurement (moles/volume)Ordered By: Rodo Garcia on 06-08-2022 Potassium [Moles/Vol] 4.2 mmol/L 3.5-5.1 [facility] Serum or plasma sodium measu rement (moles/volume)Ordered By: Rodo Garcia on 06-08-2022 Sodium [Moles/Vol] 136 mmol/L 136-146 [facility] Serum or plasma total biliru bin measurement (mass/volume)Ordered By: Rodo Garcia on 06-08-2022 Bilirubin [Mass/Vol] 1.4 mg/dL 0.3-1.2 [facility] Comment on above: Samples from patient s who have taken Naproxen have shown spurious elevation in Total Bilirubin levels. A metabolite of Naproxen, O-desmethylnaproxen, has been shown to interfere with the Jaswinder-Michael method for measuring Total Bilirubin. Serum or plasma total carbon dioxide measurement (moles/volume)Ordered By: Rodo Garcia on 06-08-2022 CO2 [Moles/Vol] 25.0 mmol/L 22.0-30.0 [facility] Serum or plasma urea nitroge n measurement (mass/volume)Ordered By: Rodo Garcia on 06-08-2022 Urea nitrogen [Mass/Vol] 15 mg/dL 9-23 [facility] Troponin I High Sensitivityo n 06-08-2022 Troponin I High Sensitivity 6 pg/mL Normal 0-20 [facility] Comment on above: Result Comment: PERF ORMED BY: [place] [address] PATHOLOGIST ANCILLARY SERVICES MANAGER THERAPY TERESITA PAULSON M.D. Performed By: #### H S TROP #### [address] Troponin I High Sensitivity 5 pg/mL Normal 0-20 [facility] Comment on above: Result Comment: PERF ORMED BY: [facility] [address] [place] [address] PATHOLOGIST ANCILLARY SERVICES MANAGER THERAPY TERESITA PAULSON M.D. Performed By: #### C BC, PT, PTT, CMP, HS TROP ####[facility] [address] Troponin I.cardiac [Mass/vol ume] in Serum or Plasma by High sensitivity methodOrdered By: Rodo Garcia on 06-08-2022 Troponin I.cardiac High sensitivity method [Mass/Vol] 6 pg/mL 0-20 [facility] XR chest 1V portableon 06-08 XR chest 1V portable [facility] [place] [address] XRay Report Signed Patient: Dung Mann MR#: [id number] [birth year] : 1950 Acct:[id number] Age/Sex: 72 / M ADM Date: 06/08/22 Loc: ER Room: Type: [facility] ER Attending Dr: Copies to: Rodo Garcia DO Ordering Provider: Rodo Garcia DO Date of Service: 06/08/22 XR/XR chest 1V portable: Headache SINGLE VIEW CHEST CLINICAL HISTORY: Intermittent headache for 3 days. Elevated blood pressure. COMPARISON: None FINDINGS: Heart normal in size. Lungs are clear. No free air. XR/XR chest 1V portable IMPRESSION: NO ACUTE FINDINGS Impression dictated by: Micky Mims Jr., D.O.06/08/2022 3:28 PM Dictation Location: [place] [address] Transcribed By: RAJENDRA 06/08/22 152 Dictated By: Micky Mims Jr, DO 06/08/22 1527 Signed By: 06/08/22 1528 [facility] 01-09-2022 [place] Telephone ([employer] [employer]) -- DUNG MANN ([id number]) 1950 M Date Time Provider Department 01/09/22 LASHAUN JAIMES During your visit today, we recorded the following information about you: Lashaun Jaimes RN 01/09/2022 3:03 PM Signed Received message from Alyssa at [facility] stating pt left them a message that he has never been given results or f/u after his PET scan in October. Dr Carbone/HOWARD Vázquez: Please contact pt. Thank you. Lashaun Jaimes RN Allergies As of Date: 01/09/2022 (No Known Allergies) Date Reviewed: 09/01/2021 Reviewed by: Estephania Hillman MA - Fully Assessed Reason for Visit: Results [95] Prescriptions as of 01/10/2022 - tamsulosin ER (FLOMAX) 0.4 mg Take 1 capsule by mouth daily at bedtime. - atorvastatin (LIPITOR) 80 mg tablet Take 80 mg by mouth once daily. - Yngzd-6-KFO-EPA-Fish Oil (FISH OIL) 1,000 mg (120 mg-180 mg) cap Take 2 g by mouth twice daily. - aspirin, enteric coated (ADULT LOW DOSE ASPIRIN) 81 mg EC tablet Take 81 mg by mouth every other day. - vitamin E, dl,tocopheryl acet, (VITAMIN E, DL, ACETATE,) 1,000 unit cap Take by mouth. - coenzyme Q10 (COQ-10) 100 mg cap capsule Take 100 mg by mouth twice daily. - MULTIVITAMIN ORAL Take by mouth. Problem List As Of Date: 01/09/2022 (None) Encounter Status:Closed by LASHAUN JAIMES on 01/10/22 [facility] Coding Summary.on 11-24-2021 Coding Summary. [id number] Gh0bWw +PGhlYWQ+AS6UPHXkP45glWJbd X1GZ2pKVS2FXAENPEJKUJ6EFW9 hgVO7EOfkM2CbqgWy VppylYRiHV45WOc5ZCF9gAewAI uivG9jcBTdY1z4FeJgET51dI65 IAcjVXXbHtD6QfElxkclpFDs E7phEfEpiFJnEot+PHRhYmxlIH geIEHyCMzbAVVdJsSnpKxmKM8d Hq5gYPKpRBDzhQrpvYLtUrLc f8tzPKZyBGhpXQ3fiIzrW1OrfZ P0EULuo3u4Rv66zAC+PHRkIHN0 mGreQTina990BcTac9aaBCA5 uQItJEieXQN5J56bu9M0ZFTxAH DhBVA6tCK2fY9irZgrailxH0Mg nXCtRpD9ROC8iPPcqI3wrNoe qrrkvF2lXgz+X33VTL8RVBAYBL 4EXwv7L5VpZzmumHR+ZQ97AOGn WY73oTZfmKIcv2tyiJz1LcBl WASyJZZ8mDczDGbmf6BhVMFoK2 3siFPmf3O6RLZltTlkpMHvRpTv aKY5vW1uXGqxfuvkn2rrxnsu Amosf9rtvm55cL25O07vHHyqPL KaFYY9QDArHXIjrRdgrf3vwE7d Ii8+FJjod5dvf0nuwKx2TnOv EVIyxrXdjMpyRQD0b1HsAd95L4 XnyYmvm1JxFhx1dp05uEMbb2K1 sIS7FYawQGZhzE5hNUwqEpO0 NAWxJyOnfQ00hNYbVBmkCa6ngC ufbEvkUW1jTDNictlwEIFjtC3r FEZvdECpfFlcJI6sQWGcjvbe d900TyXsBDR3JRAnaHAgE4EieN 5aRoNxQXHsCOWcX4MabCKtTXas L850GGmnBlG4NRQiaaScQ6Ov ZZRbkKluXuP5g2E6As3Fo9Fbal ilAVJ2NEsmSPD9PaRfAmZqPgX2 O8LrFxy2HKDrjMapIU6mX8Rr OREcjtngmtbwcLS6QERoFJEhkF 18pUOqVBilTc9rc4Y1b330DSDk VEJqqF94Pg9itCrsLQArpPQO dR6akqqko6otziqbXaArWNMbLS s2HIw8LXLztApzZvFsZHQ0JyC5 QDI1gVGrdR7mwVppgzsixN2v Oyc+C56feB6rLGR4TXO8wmfpMH TywbOgXI29BR46G3VhWqxmcDJb bGU+FPSjfaCwjEntDL0wWsIx h4njv1UqRNmhF8SdIVLxDNvjSq o0PDSpUBC8iZI6sA9cJRSpVMgo p6K3oRG1K4UilqAccv1qe5pp BYTuAVajL45onXNqn7W3ERTbdG Y4NACnbIefVeTbfU33Egv+PGNv rHrkv3LoZkcdu9evo4hnpSj7 VjNkDHUvrkQnaNmtFFU3f4MaMv 93D75uYRpfTNYvMLLuRTCoXQYm wEowft1esO5gGn3+PGNvbCB3 pVQ1gS1sOHCtLtO3URczX613Hl YlqKOnQpwgm2nkr7vxsJz8EgAr FGTswaBjvYryWKD5m8VqRl55 O39cRZxqHDSwCDTuLUAdFTSyrI fsjr3adV5kGn0+WM1ca9nscn35 gY68iAC+YYEpNWO6mWzmCEve DNDlkD3lYOaeFiU9BFDzFyTwdB 73oYQrQFawUc2uhKhwcOwsOQ2d ZVQnqfktq488EgIcc9isGWMr kPYbRZvhIKG4G59gd0F7ZJLnJR HnVOQ4qUB8hU7fkEteinxglINw pIqlwtWoxJraMGzfPGpxU240 IHRvcDsnPlBhdGllbnQgTmFtZT v1R1BdRol4AXFzvLusQB3ryXWz JZtjDw3grRxdrKtvSY2iQCUc qnedg781UwRrf3gwXWXiiRCwNO xsQNK9F00qr8J4SDAnQJLcEUU8 lVK1qK3goIxkwduttDMqlZbz yvKwvHhgJFklBSjpT017HEYkeD onLfSlmmWpDDEilMV4PU51PB08 zERed6K8dIA1H8HxOMNxxhai uuluvUB8SDFwZOUvaR21Lc6ohA ldNn1mBXDdBHU9VTXjfYPkY6Gw cT3jBnDxCFTrWSWuA1JiwPFs FVsaD874IHpoBaY2BXTmqmQkG2 NxBVUkvBseNoZ1f1C4Wr4UL0U4 DE43JK00lHFbq5G9vHI9C7Kp RHJlvkirejzfaGX8TFJbMFEkqA 70Qc8kcKpsSl7lOCZqKRV1IHCh xGRnG6AjkE6vBnHtMBLiNGEm X1WpkBGaXClkX343JFfiNwB5GV QglmNuI1EuOETvyRmqFfV0f8Q5 Oz6OZNk2AQ43UW94oXIlu6C6 oWS7W4EhABBrkrekxqnizKX4XC ZnXXOxpS25Bc5osHtvNe2rYHMo JBU4RCMwmNAnV8XygE4xLwGm DZLiSJLkC5KcpFUnIRsrF502VW reVqM9HCXcmiIiU0QqRSWfaMrw FyF5m4I8Oc0KNJPvQO92EUW3 gAH8ZQ73CT28B8YhTviyyEUuaH U+PHRhYmxlIHdpZHRoPScxMDAl TaCayFdsHI1qSt6qYMRzDEFv tAtudOPfUrVzy7noWLDzSMuzBQ 0buZteM2ArjBZ8MEEto2z2Gy88 G69uR4ZpfGU+UOKfhIH7tRW5 pY5tZsXfWeG1CKxgX097GmUhkF YsHnwmk6vfu3oziUz5SwP8ZNEr asMbxNocYSS1h1JcUg92J95d IHdpZHRoPSIxNSUiIHZhbGlnbj 0bsH7oNs4+UZZmdQI9cWW7fH3d PkYwXyG2BYlsG297WdBnvQZt Upxwu6usv5xjuIz9YyZuQLAaoy XwyGmoJSD0i1HtGn29B2HvcAnj o4VzGic8bk11tKSew1W2hKF7 M2AiGBWjfxlljRVorMkqIO0qYU RmjhnnGLEvnD8mPUOdI0y3VsZs HhM3GGmxT9LafuJ2GXJwiLPu GNklXJW0L05py0H6OXKkQWMsGN G2pQA8yN8jfBvgbiszpBRqaBri guGbaNmbFMowDPkfP726BRNw qJyjPSPfzG8zTYVciWGdbSxdNB 2lJQRmywhxMc4HZYPYScdnGhiH UjPWCZ30CQ05dJYgx0G3eXU6 M6QmQBHdgqtztkwmvER7GUGgFB GoxL63oZEwILcwUr5gt3H2d695 SNYcQQZouD51Uh1puPhzNCIl vJCUzI6wfyaqa1ivnjefCvChNT YfVMf3OZq0YTBtbTadVoKqQKQ5 PiC9YQQ1cMHkqR5leIukxerm wT8sKpj+XGgsTOStDDi0CFeoaZ Q+QVUvCTO1iEvgVJwqETJuvG4d NUJbF4f1WpHoKiC2RKsjD3Vz RIYdhnclNc27wO4sUyYdIrU5OC vjF5ZixaM5ZWEtgIDeKXxqHAF4 P40pt8A1UOTnHFTqVZR1lRM2 bS8yiCupuptfxTZybTukodXjmF gkXEblGJcfF996RCFsvUsfYdvj MKvzPLEbZR24KT26kUNih4L4 tZK7M1NvYUOezuqfhpppoCU3LI GqSNWkcI31gSTiFQucYm2na2A1 x164SCFxZPQhvO28Ow0bxCus OVQsgXWBpN1nfwdyu8iubwxoQo TeHKVdTIp5ELh5AIChcVwhBhGg RDX5WpC0TEU9tDJvnY6axSwv gtqcsG8gMow+TWFsZTwvdGQ+PH EeGYI4eOawPSrrYFSkiV5tWQKv T3h7VuNpIfQ7OFphI5XdBCBz mgrlLc74yJ2kUcYzNcD1GKmzW8 XouwI1GDZfkHBzLBqjXPQ1K94i f0L6MHMiAUBnVMU1sCA0vC3m bGlnbjogbGVmdDsgdmVydGljYW pmENzaW663SMSmmUjxCj49gGTn zDnezvD0A0GuVuxjsMP+PC90 JPBzAE56dQNflMAgq4ydvBe3Ei FsRNMuIZA7sGcdYUvqp6HiQZRi E27bmIIwc8E4NDHsdHrjiYCz KdIpnXY1qL3tTTpfuadnr7skdo vuLrhea0tuzu09gE72Q82oSZks MMHpTUJdQRUoMIKvwYjyrn2c mG4xUm5+ARWfdDP2fYA0lU3gId OvFfZ9WXheI184IjOonFTdVxxa p3ofr6rczPl3JwCqINUujgFv kSneVPC5c9NySq08W87tUCslRF AhRNIpLRDcNEXpoPgqof4khU7q Ii8+OZ8xs3fcye99lO36yKU+ OMFsLDW6uZwfXMagIFGlfF6xPL dwEpQ1OQBwHoHxlK80mWJuSKyu Pg6lpVkvkTfnIN5mVQYiebjx s476EmFcf7keBPFgyJPxTZlnBJ X1V38bp7D0NQOdAZNwRMS5uWC7 sC5pcHitdzjknFMspAwnaqQr oDcbNFugVXncW811EGTkyZycRb LfeWBgG2izgbWHOV3yUmgasKL+ EAVyDSX9bCbaZRqoXLDrxT4v CYQcY5e3EeKiIxU0SScmS6Tryd W3IUMzlVSjYOOhgLYNsY6cnqrg g5wuafynJaFiQEQeFYb1GFd4 MYKpfCdhDyIePCS3QfV6EBA5yO PbbW7qeClwqleulF1hIey+RklO OjwvdGQ+IZTdFOD1oHvmDKdr NBJdhJ5sSLEmJ6f7FeAaXmY8BJ goG5HoiaS9KVTzyHKqEQVdbVIP kP2zawjqz9aozwlsGbBnFQPq DBn9WDa3BBYscSecYnHeOAO6Xn R6ICJ8hVBfuN1ytQcishhqgV3i Oyc+TVJOOjwvdGQ+PHRkIHN0 wKasTNlrNUTwsQ5rXHOuC1f3Af KeRbL1UEreA7IyxbK8AWLkjRVk GCSagPKQbZ8ndpkxs1lsswit VpDdKBJdMYk4ASl7NYFtdVvuUc CeQGF0YuT1CDL5jDTlnJ4rvQkp tfgspN7zZcl+YWC5WXE0NN54 AX19A2SgXaarlUHujRR+PHRhYm xlIHdpZHRoPScxMDAlJyBzdHls XN4pJa1vLYBnNBGwrYcpvDQu OiBj (more content not included)... Normal [facility] XR Chest 2 Viewson 2 XR Chest 2 Views Exam Date/Time: 11/18/2021 10:51 EDT Reason for Exam: M65.332, M65.342, M65.352 Report IMPRESSION: NO EVIDENCE OF ACTIVE CHEST DISEASE. CLINICAL HISTORY: M65.332, M65.342, M65.352. Preop. COMMENT: The heart is normal in size. The mediastinum is unremarkable. The lungs appear clear. No infiltration nor pleural effusion is evident. FINAL REPORT Dictated: 11/20/2021 8:55 pm Walt Obregon M.D. Signed (Electronic Signature): 11/20/2021 8:55 pm Signed by: Walt Obregon M.D. Transcribed by: JOVANNA Technologist: RH Normal [facility] Auto Diffon 11-18-2021 Basophils/100 WBC (Bld) 0.1 % Normal 0.0-2.0 [facility] Comment on above: Order Comment: Order Added by Discern Expert. Performed By: #### 1 [id number], [id number], [id number], [id number] #### [facility] [address] [place] [address] Basophils/Leukocytes Auto (Bld) [Pure # fraction] 0.0 E9/L Normal 0.0-0.2 [facility] Comment on above: Order Comment: Order Added by Discern Expert. Performed By: #### 1 [id number], 4481137, 2286989, 4869808 #### [facility] [address] [place] [address] Eosinophils/100 WBC (Bld) 0.7 % Normal 0.0-8.0 [facility] Comment on above: Order Comment: Order Added by Discern Expert. Performed By: #### 1 [id number], 0242923, 1282311, 2698299 #### [facility] [address] [place] [address] Eosinophils/Leukocytes Auto (Bld) [Pure # fraction] 0.0 E9/L Normal 0.0-0.5 [facility] Comment on above: Order Comment: Order Added by Discern Expert. Performed By: #### 1 3932604, 4236148, 7882534, 5947563 #### [facility] [address] [place] [address] Lymphocytes/100 WBC (Bld) 7.2 % Low 14.0-50.0 [facility] Comment on above: Order Comment: Order Added by Discern Expert. Performed By: #### 1 [id number], 5514799, 2264764, 8966544 #### [facility] [address] [place] [address] Lymphocytes/Leukocytes Auto (Bld) [Pure # fraction] 0.5 E9/L Low 1.0-4.0 [facility] Comment on above: Order Comment: Order Added by Discern Expert. Performed By: #### 1 [id number], 9050241, 9767517, 0596352 #### [facility] [address] [place] [address] Monocytes/100 WBC (Bld) 6.0 % Normal 4.0-14.0 [facility] Comment on above: Order Comment: Order Added by Discern Expert. Performed By: #### 1 3385625, 7318710, 2047983, 1785053 #### [facility] [address] [place] [address] Monocytes/Leukocytes Auto (Bld) [Pure # fraction] 0.4 E9/L Normal 0.2-1.0 [facility] Comment on above: Order Comment: Order Added by Discern Expert. Performed By: #### 1 3544338, 1119558, 4435591, 3849038 #### [facility] [address] [place] [address] Neutrophils/100 WBC (Bld) 86.0 % High 36.0-75.0 [facility] Comment on above: Order Comment: Order Added by Discern Expert. Performed By: #### 1 2106908, 0069768, 4493040, 1618828 #### [facility] [address] [place] [address] Neutrophils/Leukocytes Auto (Bld) [Pure # fraction] 5.8 E9/L Normal 2.0-7.5 [facility] Comment on above: Order Comment: Order Added by Discern Expert. Performed By: #### 1 6674861, 7851291, 9778483, 2464943 #### [facility] [address] [place] [address] BMPon 11-18-2021 Creatinine [Mass/Vol] 1.1 mg/dL Normal 0.5-1.3 [facility] Comment on above: Performed By: #### 1 5654743, 9026252, 4844010, 2821474 #### [facility] [address] [place] [address] Urea nitrogen [Mass/Vol] 16 mg/dL Normal 5-21 [facility] Comment on above: Performed By: #### 1 0737063, 5910185, 6710100, 3755770 #### [facility] [address] [place] [address] Urea nitrogen/Creatinine [Mass ratio] 14 No Units Normal 10-20 [facility] Comment on above: Performed By: #### 1 3638094, 5580383, 6490281, 2592440 #### [facility] [address] [place] [address] Anion gap [Moles/Vol] 14 mmol/L Normal 6-16 [facility] Comment on above: Performed By: #### 1 8196810, 0820478, 2348021, 6670181 #### [facility] [address] [place] [address] Calcium [Mass/Vol] 9.1 mg/dL Normal 8.9-11.1 [facility] Comment on above: Performed By: #### 1 8097868, 7983518, 6234236, 8283027 #### [facility] [address] [place] [address] Chloride [Moles/Vol] 105 mmol/L Normal 101-111 [facility] Comment on above: Performed By: #### 1 6040163, 2230944, 4745908, 1008899 #### [facility] [address] [place] [address] CO2 [Moles/Vol] 23 mmol/L Normal 21-31 [facility] Comment on above: Performed By: #### 1 3755469, 6009948, 8329472, 8778438 #### [facility] [address] [place] [address] Glucose [Mass/Vol] 167 mg/dL Normal 55-199 [facility] Comment on above: Result Comment: If t his glucose result represents a fasting glucose, interpretation should refer to the following reference range: 55-99 mg/dL Performed By: #### 1 2182704, 3011798, 4841284, 4391411 #### [facility] [address] [place] [address] Potassium [Moles/Vol] 4.4 mmol/L Normal 3.5-5.3 [facility] Comment on above: Performed By: #### 1 7940014, 4346193, 7921436, 3220434 #### [facility] [address] [place] [address] Sodium [Moles/Vol] 138 mmol/L Normal 135-145 [facility] Comment on above: Performed By: #### 1 2426506, 9588012, 5360769, 6523348 #### [facility] [address] [place] [address] CBC w/ Auto Diffon Erythrocyte distribution width (RBC) [Ratio] 13.4 % Normal 10.9-14.2 [facility] Comment on above: Performed By: #### 1 4626928, 4964006, 9885961, 1187004 #### [facility] [address] [place] [address] Hematocrit (Bld) [Volume fraction] 45.3 % Normal 37.7-49.0 [facility] Comment on above: Performed By: #### 1 1197910, 3925878, 4361296, 5890729 #### [facility] [address] [place] [address] Hemoglobin (Bld) [Mass/Vol] 15.4 g/dL Normal 13.5-17.5 [facility] Comment on above: Performed By: #### 1 5636385, 0262566, 4591880, 0063728 #### [facility] [address] [place] [address] MCH (RBC) [Entitic mass] 30.7 pg Normal 27.0-34.0 [facility] Comment on above: Performed By: #### 1 4515405, 1082673, 3324407, 8320284 #### [facility] [address] [place] [address] MCHC (RBC) [Mass/Vol] 33.9 g/dL Normal 31.4-36.0 [facility] Comment on above: Performed By: #### 1 3032432, 8320944, 4404971, 7082770 #### [facility] [address] [place] [address]16[address] MCV (RBC) [Entitic vol] 90.6 fL Normal 80.0-100.0 [facility] Comment on above: Performed By: #### 1 2939903, 7898023, 1340843, 8665207 #### [facility] [address] [place] [address]84[address] Platelet mean volume (Bld) [Entitic vol] 8.6 fL Normal 6.4-10.8 [facility] Comment on above: Performed By: #### 1 4932055, 6814120, 6080476, 1536009 #### [facility] [address] [place] [address] 655[address] Platelets (Bld) [#/Vol] 161.0 E9/L Normal 150.0-500. 0 [facility] Comment on above: Performed By: #### 1 6790239, 9083854, 5396946, 1980922 #### [facility] [address] [place] [address] RBC (Bld) [#/Vol] 5.0 E12/L Normal 4.3-5.9 [facility] Comment on above: Performed By: #### 1 7797143, 7149488, 4620969, 9192324 #### [facility] [address] [place] [address] WBC corrected for nucl RBC Auto (Bld) [#/Vol] 6.8 E9/L Normal 4.0-11.0 [facility] Comment on above: Performed By: #### 1 4840449, 6967125, 6124216, 9879851 #### [facility] [address] [place] [address] CHEMISTRYOrdered By: SYSTEM SYSTEM on 11-18-2021 Anion gap [Moles/Vol] 14 mmol/L Normal 6 - 16 mEq/L [facility] Calcium [Mass/Vol] 9.1 mg/dL Normal 8.9 - 11. 1 mg/dL [facility] Chloride [Moles/Vol] 105 mmol/L Normal 101 - 1 11 mmol/L [facility] CO2 [Moles/Vol] 23 mmol/L Normal 21 - 31 mmol/L [facility] Creatinine [Mass/Vol] 1.1 mg/dL Normal 0.5 - 1.3 mg/dL [facility] Remisol GFR/1.73 sq M.predicted among blacks MDRD (S/P/Bld) [Vol rate/Area] mL/min/1.73 m2 Normal >=59mL/min /1.73 m2 [facility] Chem S GFR/1.73 sq M.predicted among non-blacks MDRD (S/P/Bld) [Vol rate/Area] mL/min/1.73 m2 Normal >=59mL/min /1.73 m2 [facility] Chem S Glucose [Mass/Vol] 167 mg/dL Normal 55 - 199 mg/dL [facility] Potassium [Moles/Vol] 4.4 mmol/L Normal 3.5 - 5.3 mmol/L [facility] Sodium [Moles/Vol] 138 mmol/L Normal 135 - 145 mmol/L [facility] Urea nitrogen [Mass/Vol] 16 mg/dL Normal 5 - 21 mg/dL [facility] Remisol Urea nitrogen/Creatinine [Mass ratio] 14 mg/mg Normal 10 - 20 [facility] Consent for Treatmenton 11-04 Consent for Treatment [id number]:127 Normal [facility] HEMATOLOGYOrdered By: SYSTEM SYSTEM on 11-18-2021 Basophils/100 WBC (Bld) 0.1 % Normal 0.0 - 2.0 % [facility] Basophils/Leukocytes Auto (Bld) [Pure # fraction] 0.0 E9/L Normal 0.0 - 0.2 E9/L [facility] Eosinophils/100 WBC (Bld) 0.7 % Normal 0.0 - 8.0 % [facility] Eosinophils/Leukocytes Auto (Bld) [Pure # fraction] 0.0 E9/L Normal 0.0 - 0.5 E9/L [facility] Lymphocytes/100 WBC (Bld) 7.2 % Low 14.0 - 50.0 % [facility] Lymphocytes/Leukocytes Auto (Bld) [Pure # fraction] 0.5 E9/L Low 1.0 - 4.0 E9/L [facility] Monocytes/100 WBC (Bld) 6.0 % Normal 4.0 - 14.0 % [facility] Monocytes/Leukocytes Auto (Bld) [Pure # fraction] 0.4 E9/L Normal 0.2 - 1.0 E9/L [facility] Neutrophils/100 WBC (Bld) 86.0 % High 36.0 - 75.0 % [facility] Neutrophils/Leukocytes Auto (Bld) [Pure # fraction] 5.8 E9/L Normal 2.0 - 7.5 E9/L [facility] HEMATOLOGYOrdered By: Nelly Hahn on 11-18-2021 Erythrocyte distribution width (RBC) [Ratio] 13.4 % Normal 10.9 - 14.2 % [facility] Hematocrit (Bld) [Volume fraction] 45.3 % Normal 37.7 - 49.0 % [facility] Hemoglobin (Bld) [Mass/Vol] 15.4 g/dL Normal 13.5 - 17.5 gm/dL [facility] MCH (RBC) [Entitic mass] 30.7 pg Normal 27.0 - 34.0 pg [facility] MCHC (RBC) [Mass/Vol] 33.9 g/dL Normal 31.4 - 36.0 gm/dL [facility] MCV (RBC) [Entitic vol] 90.6 fL Normal 80.0 - 100.0 fL [facility] Platelet mean volume (Bld) [Entitic vol] 8.6 fL Normal 6.4 - 10.8 fL [facility] Platelets (Bld) [#/Vol] 161.0 E9/L Normal 150.0 - 500.0 E9/L [facility] RBC (Bld) [#/Vol] 5.0 E12/L Normal 4.3 - 5.9 E12/L [facility] WBC corrected for nucl RBC Auto (Bld) [#/Vol] 6.8 E9/L Normal 4.0 - 11.0 E9/L [facility] eGFRon 11-18-2021 GFR/1.73 sq M.predicted among blacks MDRD (S/P/Bld) [Vol rate/Area] mL/min/{1.73_m2} Normal >=59 [facility] Comment on above: Order Comment: Order added by Discern Expert. Result Comment: eGFR is race adjusted. AA=. Performed By: #### 1 [id number], [id number] #### [facility] [address] [place] [address] GFR/1.73 sq M.predicted among non-blacks MDRD (S/P/Bld) [Vol rate/Area] mL/min/{1.73_m2} Normal >=59 [facility] Comment on above: Order Comment: Order added by Discern Expert. Result Comment: [employer] jose kidney disease could be indicated at eGFR's of less than 60 mL/min/1.73m2. Kidney failure is indicated at less than 15 mL/min/1.73m2. Performed By: #### 1 [id number] #### [facility] [address] [place] [address] Physician Orderon 11-16-2021 Physician Order [id number]#[id number]:127 Normal [facility] Physician Order [id number]#1.00CD:127 Normal [facility] NM PET/CT PROSTATE WBon 03-0 ND PET/CT PROSTATE WB * * *Final Report* * * DATE OF EXAM: Oct 12 2021 3:59PM N 0093 - ND PET/CT PROSTATE WB / PROCEDURE REASON: Malignant neoplasm of prostate (HCC) * * * * Physician Interpretation * * * * 82W-[id number]-[id number] WHOLE BODY PET/CT SCAN HISTORY: Prostate cancer, subsequent treatment strategy TECHNIQUE: 10.2 mCi of 53V-SSVSiZ-YOYG. The PET imaging was obtained between TOP OF HEAD THROUGH PROXIMAL THIGH approximately 60 minutes after injection. Non-contrast spiral CT was also performed for attenuation correction. CT Dose-Length Product (DLP): 255mGy*cm CT Dose Reduction Employed: Yes RESULTS: HEAD AND NECK: Lymph nodes: No avid, PSMA expressing lymph nodes. Other: Physiologic uptake in the salivary glands, lacrimal glands, tonsillar tissues, larynx. CHEST: Lymphnodes: No suspicious avid PSMA expressing lymph nodes. Lungs and airways: No avid lung nodules. Cardiovascular structures: No lesions with abnormal tracer uptake. Pleura: No pleural effusion or lesions with abnormal tracer uptake. ABDOMEN AND PELVIS: Physiologic uptake in the liver, spleen, stomach, loops of bowel, GI tract, kidneys, urinary bladder. Hepatobiliary and pancreas: Physiologic uptake. No PSMA-avid lesions. Spleen: Physiologic uptake. No splenomegaly or PSMA-avid lesions. Adrenal Glands: No PSMA-avid lesions. Kidneys: Physiologic activity but no PSMA-avid lesions. Mesentery and retroperitoneum: No PSMA-avid lymph nodes or other lesions. GI tract: Physiologic activity but no PSMA-avid abnormalities. Pelvis: Prostate bed: No suspicious uptake. Seminal Vesicles bed: No suspicious focus. Lymph nodes: Right: * Common iliac: No PSMA-avid nodes. * External iliac: Right external iliac lymph node measuring about 1 x 1.2 cm (max SUV 17.8). * Internal iliac: No PSMA-avid nodes. * Obturator: No PSMA-avid nodes. Left: * Common iliac: No PSMA-avid nodes. * External iliac: No PSMA-avid nodes. * Internal iliac: No PSMA-avid nodes. * Obturator: No PSMA-avid nodes. Pre-sacral: No PSMA-avid nodes. Tamika-rectal: No PSMA-avid nodes. Other findings: Mild activity in the right retrocaval region. BONE AND OTHER FINDINGS: No PSMA-avid osseous destructive lesions. , likely related to degenerative changes. IMPRESSION: Head and neck: -No suspicious PSMA expressing neoplastic process. Chest: -No evidence of PSMA expressing neoplastic process Abdomens and Pelvis: Focal PSMA avid right external iliac lymph node. Suspicious for metastatic lymph node. Bones and soft tissues: - No evidence of PSMA expressing neoplastic process Occupational Analyst: [place] Transcribe Date/Time: Oct 12 2021 4:37P Dictated by : LOKESH GARCIA MD This examination was interpreted and the report reviewed and electronically signed by: LOKESH GARCIA MD on Oct 13 2021 12:02AM EST [id number] Normal [facility] 09-02-2021 CNPN Telephone (GLQ) -- DUNG MANN ([id number]) 1950 M Date Time Provider Department 09/02/21 JESUS CARBONE During your visit today, we recorded the following information about you: Maydauche German [facility] 09/02/2021 11:48 AM Signed This form is used for MAIN CAMPUS APPOINTMENTS ONLY. Is this request for a Main [place] PET scan appointment? Yes: Academic Department Chair: Mayda German [facility] Requesting Person (Last Name, First Name): Mayda German Area Code + Phone/Pager: [phone] Who do we call to schedule this appointment? Patient Requesting Staff Jesus Carbone Area Code + Phone/Pager: [phone] PET Orders (A delay in scheduling will result if the orders are not present at time of review): Internal ADDITIONAL ACTION MAY BE REQUIRED IF PATIENTS OON INSURANCE OR SELF PAY COVERAGE HAS NOT BEEN CLEARED FOR REQUESTED APPOINTMENT. Scheduling: JESSICA: As soon as insurance will allow What account will this PET appointment be linked to? P/F Type of PET: Oncology: Are there additional diagnostic CT scans required to be done at time of PET scan? No Is the request for a PET MR ? No What account will diagnostic testing appointment be linked to? P/F Will this patient be admitted for testing? No Will the patient need anesthesia? NO Send requests to P COORD REVIEW SUSANA Esparza RN 09/07/2021 12:05 PM Signed Authorization number: PSMA [id number] Authorization date range: PSMA from 04-15-21 to 05-19-22 Primary Insurance: [employer] insurance Diagnosis: Malignant neoplasm of prostate (HCC) [C61] DX Imaging: CT/CTA: 04-18-[address] and Bone Scan: 04-18-21 OSH, 04-18-21 PET/ct Axumin scan OSH Pathology: localized prostate cancer in 2019 (iPSA 71, [place] 4+4) Labs: 08-27-19 PSA 27 09-15-19 PSA 35 05-10-20 PSA 7 12-01-20 PSA 4.8 02-15-21 PSA 5.12 03-24-21 PSA 3.9 Clinical Notes Reviewed: 09-01-21 Urology, 05-19-21 Hem Oncx Date of last: March 25, 2019 RPLND (Dr. Parks). Chemo Therapy : September 25, 2019?leuprolide, received total 2 doses;?was switched to goserelin?due to leuprolide shortage, received 2 doses last in December 2020 (total ADT duration of ~1.5 years). ? Radiation Therapy April 05, 2020 completed salvage RT?(7020 cGy in 39 fractions) Additional Information: Follow up after PET scan to further discuss salvage surgery vs. observation vs. salvage radiation vs. ADT if systemic Radiologist Reviewed: N/A Initial/Subsequent:: Subsequent Treatment Strategy: 0093 PET Protocol: PSMA Diagnostic Imaging Requested: No Comments for Direct Selling Counselor: N/A ROUTE TO SCHEDULERS POOL P PET REINFORCING STEEL PLACER or P ND SPECIAL STUDIES SUSANA Esparza RN 09/07/2021 12:05 PM Addendum [facility] auth on file in scanned documents covered Oncology for Prostate cancer and includes testing. [id number] from 04-15-21 to 05-19-22 Marlin Galvan Supv 09/29/2021 10:58 AM Addendum Sara Rhodes, RT(R) 09/14/2021 10:03 AM Addendum Marlin Galvan Akil 09/29/2021 10:57 AM Signed Confirmed Appointment With: rescheduled with patient Prep instructions given? 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 - atorvastatin (LIPITOR) 80 mg tablet Take 80 mg by mouth once daily. - Uizxa-0-QAW-EPA-Fish Oil (FISH OIL) 1,000 mg (120 mg-180 mg) cap Take 2 g by mouth twice daily. - aspirin, enteric coated (ADULT LOW DOSE ASPIRIN) 81 mg EC tablet Take 81 mg by mouth every other day. - vitamin E, dl,tocopheryl acet, (VITAMIN E, DL, ACETATE,) 1,000 unit cap Take by mouth. - coenzyme Q10 (COQ-10) 100 mg cap capsule Take 100 mg by mouth twice daily. - MULTIVITAMIN ORAL Take by mouth. Problem List As Of Date: 09/02/2021 (None) Encounter Status:Closed by SARA RHODES on 09/14/21 [facility] Diana 09-01-2021 CNOV Office Visit (UROLMN ) -- DUNG MANN ([id number]) 1950 Date Time Provider Department 09/01/21 2:30 PM JESUS CARBONE During your visit today, we recorded the following information about you: Pulse Blood pressure Weight Height 103/minute 188/90 67.1 kg 1.676 m Jesus Carbone MD 09/05/2021 2:24 PM Signed ##PROSTATE CANCER INITIAL ENCOUNTER## Chief Complaint: Prostate cancer Consult or Referral: Consultation requested by Dr. Jeronimo Vasquez MD for an opinion regarding prostate cancer. My final recommendations will be communicated back to the requesting physician by way of shared Medical record or letter to requesting physician via US mail. History of Present Illness: Dung Mann is a very pleasant 71 year old male who presents with a history of Prostate Cancer Per Dr Jeronimo FELTONF on 05/19/2021 ONCOLOGIC HISTORY AND TREATMENT DETAILS: ? Diagnosed with high risk localized prostate cancer in 2019 (iPSA 71, [place] 4+4) ? March 25, 2019 RPLND (Dr. Parks). Pathology consistent with [place] 4+4 adenocarcinoma, with focal extraprostatic extension, right seminal vesicle invasion and perineural invasion, Margins were negative and 0 out of 6 nodes were positive (pT3bN0). Postoperative course was complicated by a slow recovery period of almost 5 months per patient. ? Post-operative PSA was 27 (1-22-20) and increased to 35 (2-10-20) ? September 09, 2019 Axumin PET showed hypermetabolic right external iliac node without other areas of uptake ? September 25, 2019 leuprolide, received total 2 doses; was switched to goserelin due to leuprolide shortage, received 2 doses last in December 2020 (total ADT duration of ~1.5 years). Side effects included myalgias and arthralgias, for which ADT was discontinued per patient preference ? April 05, 2020 completed salvage RT (7020 cGy in 39 fractions) ? Post-RT PSA was 7 (10-5-20) ? October 12, 2020 CT and bone scans without any evidence of distant disease ? Last dose of goserelin in December 2020 ? PSA values 4.8 (12-01-21) --> 5.12 (7--21) --> 3.9 (8-19-21; christian) ? April 2021 Axumin PET scan reportedly showing continued presence of the right external iliac node, report not available to me IPSS 2 QOL 0 JACEK 5/25 Is interested in salvage HIFU, but not really an option for recurrence in a lymph node Past Medical History: PAST MEDICAL HISTORY Diagnosis Date - Hypercholesteremia Past Surgical History: PAST SURGICAL HISTORY Procedure Laterality Date - PAST SURGICAL HISTORY OF 2019 prostatectomy - PAST SURGICAL HISTORY OF Left knee arthroscopy Problem List: There is no problem list on file for this patient. Medications Current Outpatient Medications on File Prior to Visit Medication Sig - tamsulosin ER (FLOMAX) 0.4 mg Take 1 capsule by mouth daily at bedtime. (Patient not taking: Reported on 03/22/2020 ) - atorvastatin (LIPITOR) 80 mg tablet Take 80 mg by mouth once daily. - Qizcl-7-MTN-EPA-Fish Oil (FISH OIL) 1,000 mg (120 mg-180 mg) cap Take 2 g by mouth twice daily. - aspirin, enteric coated (ADULT LOW DOSE ASPIRIN) 81 mg EC tablet Take 81 mg by mouth every other day. - vitamin E, dl,tocopheryl acet, (VITAMIN E, DL, ACETATE,) 1,000 unit cap Take by mouth. - coenzyme Q10 (COQ-10) 100 mg cap capsule Take 100 mg by mouth twice daily. - MULTIVITAMIN ORAL Take by mouth. No current facility-administered medications on file prior to visit. Family History: FAMILY HISTORY Problem Relation Age of Onset - Prostate Cancer Brother Social History: Social History Tobacco Use - Smoking status: Former Smoker Packs/day: 0.50 Years: 20.00 Pack years: 10.00 Quit date: 10/15/1988 Years since quittin.9 - Smokeless tobacco: Never Used Substance Use Topics - Alcohol use: Not Currently - Drug use: Not Currently Allergies: Patient has no known allergies. Review of Systems: Review of Systems: GENERAL: No weight loss, malaise or fevers. HEENT: Negative for frequent or significant headaches, No changes in hearing or vision, no nose bleeds or other nasal problems NECK: Negative for goiter, pain or significant neck swelling RESPIRATORY: Negative for cough, hemoptysis, wheezing, COPD, dyspnea or shortness of breath CARDIOVASCULAR: Negative for chest pain, leg swelling, CHF or palpitations GI: No nausea, vomiting, or diarrhea : No history of dysuria, frequency or incontinence MUSCULOSKELETAL: Negative for joint pain or swelling, back pain or muscle pain SKIN: Negative for lesions, rash, and itching. PSYCH: Negative for sleep disturbance, mood disorder and recent psychosocial stressors. HEMATOLOGY/LYMPHOLOGY: Negative for prolonged bleeding, bruising easily or swollen nodes. The remainder of the review of systems is negative. Imaging: Axumin PET right external iliac node 2019 I personal (more content not included)... Normal [facility] CNPNon 08-10-2021 CNPN Telephone (HEMASA) -- DUNG MANN ([id number]) 1950 M Date Time Provider Department 08/10/21 LASHAUN JAIMES During your visit today, we recorded the following information about you: Lashaun Jaimes RN 08/10/2021 4:45 PM Signed MEIR: Pt called wanted to discuss with you possibly changing treatment options. He can be reached at [phone] or [phone]. AMILCAR Villareal MD 08/11/2021 11:13 AM Signed I spoke with the patient. He prefers to undertake ultrasound treatments for his prostate cancer. He read that [facility] is able to facilitate those treatments and would like a referral. Could we find out if this is truly the case and if so, what referral would be needed? Thank you, K Joshua Kapadia RN 08/11/2021 3:[address] Gerry King with [facility] urology does this per MICHELE. Please sign pending referral if you agree. Thanks AMILCAR Valadez RN 08/11/2021 3:17 PM Signed Addended by: JOSHUA KAPADIA on: 08/11/2021 03:17 PM Modules accepted: Edith Vasquez MD 08/11/2021 3:20 PM Signed Addended by: JERONIMO VASQUEZ on: 08/11/2021 03:20 PM Modules accepted: Edith Willoughby Sec 08/11/2021 3:[address] king is not accepting new patients, his schedule is booked out until Summer. They gave me other options of doctors to schedule patient with. I am working on that right now. Joshua Willoughby Sec 08/11/2021 3:48 PM Signed Girls, if you could possible work on this tomorrow. They gave me the name of 3 people that you could schedule him with Dr Kamilah Malik [phone] Dr Carbone [phone] Dr Lombardi [phone] Thank you! Bev Kevin Pss 08/12/2021 9:10 AM Signed Pt is scheduled with Dr. Carbone 08/30/2021 @ 11am. Attempted to call pt, phone service is down. Will try back later today. Bev Kevin Pss 08/12/2021 10:47 AM Signed Received call back from pt, confirmed appointment with Dr. Carbone. Allergies As of Date: 08/10/2021 (No Known Allergies) Date Reviewed: 05/19/2021 Reviewed by: Paula Eli - Fully Assessed Reason for Visit: Patient Question [1477] Primary Visit Diagnosis:Malignant neoplasm of prostate (HCC) [C61] Order(s):CONSULT TO UROLOGY [9041] Order #: [id number]: 1 FUTURE Prescriptions as of 08/12/2021 - tamsulosin ER (FLOMAX) 0.4 mg Take 1 capsule by mouth daily at bedtime. - atorvastatin (LIPITOR) 80 mg tablet Take 80 mg by mouth once daily. - Bomss-6-XSC-EPA-Fish Oil (FISH OIL) 1,000 mg (120 mg-180 mg) cap Take 2 g by mouth twice daily. - aspirin, enteric coated (ADULT LOW DOSE ASPIRIN) 81 mg EC tablet Take 81 mg by mouth every other day. - vitamin E, dl,tocopheryl acet, (VITAMIN E, DL, ACETATE,) 1,000 unit cap Take by mouth. - coenzyme Q10 (COQ-10) 100 mg cap capsule Take 100 mg by mouth twice daily. - MULTIVITAMIN ORAL Take by mouth. Problem List As Of Date: 08/10/2021 (None) Encounter Status:Closed by LASHAUN JAIMES on 08/11/21 [facility] CNOVSPon 05-19-2021 CNOVSP Visit (SP) Office ([facility]) -- DUNG MANN ([id number]) 1950 M Date Time Provider Department 05/19/21 11:00 AM JERONIMO VASQUEZ During your visit today, we recorded the following information about you: Temperature Pulse Respiration Blood pressure 97.7 degrees 110/minute 16/minute 167/86 Weight Height 63.5 kg 1.656 m Jeronimo Vasquez MD 05/19/2021 12:33 PM Signed ONCOLOGY INITIAL CONSULTATION May 19, 2021 REFERRAL REQUESTED BY: Joellen Downey PCP and other physicians involved in patient's care: Lawson Bolanos (PCP), Joellen Murillo (oncology) REASON FOR CONSULTATION: Prostate adenocarcinoma ONCOLOGIC HISTORY AND TREATMENT DETAILS: ? Diagnosed with high risk localized prostate cancer in 2019 (iPSA 72, [place] 4+4) ? March 25, 2019 RPLND (Dr. Parks). Pathology consistent with [place] 4+4 adenocarcinoma, with focal extraprostatic extension, right seminal vesicle invasion and perineural invasion, Margins were negative and 0 out of 6 nodes were positive (pT3bN0). Postoperative course was complicated by a slow recovery period of almost 5 months per patient. ? Post-operative PSA was 27 (1-22-20) and increased to 35 (2-10-20) ? September 09, 2019 Axumin PET showed hypermetabolic right external iliac node without other areas of uptake ? September 25, 2019 leuprolide, received total 2 doses; was switched to goserelin due to leuprolide shortage, received 2 doses last in December 2020 (total ADT duration of ~1.5 years). Side effects included myalgias and arthralgias, for which ADT was discontinued per patient preference ? April 05, 2020 completed salvage RT (7020 cGy in 39 fractions) ? Post-RT PSA was 7 (10-5-20) ? October 12, 2020 CT and bone scans without any evidence of distant disease ? Last dose of goserelin in December 2020 ? PSA values 4.8 (12-01-) --> 5.12 (7-13-21) --> 3.9 (8-19-21; christian) ? April 2021 Axumin PET scan reportedly showing continued presence of the right external iliac node, report not available to me HPI: This is a 71-year-old male who comes to the clinic with a history of prostate cancer. His oncologic history and treatment details are as noted above. Currently he is on no treatment for his prostate cancer. His last goserelin injection was approximately December 2020. His last PSA was in March 2021 (likely reflective of the goserelin injection in December 2020) and noted to be at 3.9. Overall he feels well. He denies any fevers, chills, night sweats, weight loss, focal bony pain or back pain. No urinary or rectal symptoms. He endorses intermittent mild right lower quadrant abdominal pain, which he is not experiencing at the moment. Most recent PET scan from April 2021 showed continued presence of the right external iliac node. His PSA continues to be detectable (last in March 2021 at 3.9), although has been stable since November 2020. His last dose of ADT was in December 2020. ADT was discontinued per patient preference given significant side effects such as myalgias, arthralgias and hot flashes. Patient states that he will never again try ADT as he wishes to focus on quality of life. He is looking into alternative treatments such as ultrasound for his prostate cancer. He does not wish for any further surgery or radiation treatments. He does not wish for chemotherapy like medications. Given his coronary artery calcifications, he is taking EDTA chelation. Denies any bleeding symptoms. 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 Family history is noncontributory. He denies any substance abuse. MEDICATIONS AND ALLERGIES: Reviewed PHYSICAL EXAM BP 167/86 Pulse 110 Temp 36.5 ?C (97.7 ?F) (Temporal) Resp 16 Ht 165.6 cm (5' 5.2 ) Wt 63.5 kg (140 lb) SpO2 98% BMI 23.16 kg/m? PS - 0, Head atraumatic, no pallor, icterus or lymphadenopathy, lungs clear to auscultation, heart exam notable for 3/6 systolic murmur in the aortic region, abdomen soft without distension or organomegaly, neuro grossly non-focal, skin without rash, extremities without swelling LABORATORY, IMAGING AND PATHOLOGY CBC, CMP, PSA, pathology and scans reviewed ASSESSMENT AND RECOMMENDATIONS 71 male with prostate adenocarcinoma, diagnosed in 2019 has localized high risk disease with a PSA of 72, initially treated with surgery and lymph node dissection, followed by PSA persistence leading to salvage RT and ADT in 2019?2020. After the initial resection of the prostate, the only known site of disease ba (more content not included)... Normal [facility] CBC AUTO DIFFon 07-27-2017 Basophils Auto #/vol (Bld) 0.0 103/ul Normal 0.0-0.[address] [facility] Comment on above: Performed By: #### C BC ####[facility] [address] [place], [place] [address]Ngpjzb Meliza Basophils/100 WBC Auto (Bld) 0.2 % Normal 0.2-2.[address] [facility] Comment on above: Performed By: #### C BC ####[facility] [address] [place], [place] [address]Wzzprs Meliza Eosinophils 0.1 103/ul Normal 0.0-0.[address] [facility] Comment on above: Performed By: #### C BC ####[facility] [address] [place], [place] [address]Cenicm Meliza Eosinophils/100 leukocytes 0.9 % Normal 0.9-7.[address] [facility] Comment on above: Performed By: #### C BC ####[facility] [address] [place], [place] [address]Ijjnij Meliza Erythrocyte distribution width Auto Ratio (RBC) 12.7 % Normal 11.0-15.[address] [facility] Comment on above: Performed By: #### C BC ####[facility] [address] [place] Erythrocytes (RBC) 5.10 106/ul Normal 4.70-6.[address] [facility] Comment on above: Performed By: #### C BC ####[facility] [address] [place] [address] Meliza Hematocrit (HCT) 46.0 % Normal 42.0-54.[address] [facility] Comment on above: Performed By: #### C BC ####[facility] [address] [place] [address] Mel[place] Hemoglobin mass conc (Bld) 16.0 g/dL Normal 14.0-18.[address] [facility] Comment on above: Performed By: #### C BC ####[facility] [address] [place] [address] Meliza IG # 0.02 10e3/ul Normal 0.00-0.[address] [facility] Comment on above: Performed By: #### C BC ####[facility] [address] [place] [address] Meliza IG % 0.3 % Normal 0.0-0.[address] [facility] Comment on above: Performed By: #### C BC ####[facility] [address] [place] [address] Meliza Lymphocytes 0.9 103/ul Critically low 1.2-3.[address] [facility] Comment on above: Performed By: #### C BC ####[facility] [address] [place] [address] Meliza Lymphocytes/100 leukocytes 13.4 % Critically low 20.5-60.[address] [facility] Comment on above: Performed By: #### C BC ####[facility] [address] [place] [address] Meliza MANUAL DIFF REQ NO Normal [facility] Comment on above: Performed By: #### C BC ####[facility] [address] [place] [address] Meliza MCH 31.4 pg Normal 25.9-34.[address] [facility] Comment on above: Performed By: #### C BC ####[facility] [address] [place], [place] [address]Uwiqvc Karen MCHC mass conc (RBC) 34.8 g/dL Normal 29.9-35.[address] [facility] Comment on above: Performed By: #### C BC ####[facility] [address] [place] [address]Gerken Meliza MCV 90.2 fL Normal 80.0-94.[address] [facility] Comment on above: Performed By: #### C BC ####[facility] [address] [place] [address]Gerken Meliza Monocytes 0.4 103/ul Normal 0.3-0.[address] [facility] Comment on above: Performed By: #### C BC ####[facility] [address] [place], [place] [address]Gerken Meliza Monocytes/100 leukocytes 6.5 % Normal 1.7-12.[address] [facility] Comment on above: Performed By: #### C BC ####[facility] [address] [place], [place] [address]Gerken Meliza Neutrophils 5.2 103/ul Normal 1.4-6.[address] [facility] Comment on above: Performed By: #### C BC ####[facility] [address] [place], [place] [address]Gerken Meliza Neutrophils/100 WBC Auto (Bld) 78.7 % Critically high 43.0-75.[address] [facility] Comment on above: Performed By: #### C BC ####[facility] [address] [place], [place] [address]Hztran Meliza Platelet mean volume (PMV) 10.4 fL Normal 9.5-13.[address] [facility] Comment on above: Performed By: #### C BC ####[facility] [address] [place], [place] [address]Njotrh Meliza Platelets 134 103/ul Critically low 150-[address] [facility] Comment on above: Performed By: #### C BC ####[facility] Gbcsbyogkm0826 [place], [place] [address]AuboxfAndrea Haider WBC (Leukocytes) 6.6 103/ul Normal 4.0-11.[address] [facility] Comment on above: Performed By: #### C ####[facility] Iebhbznyse8863 [place], [place] [address] ABD/PELVIS W CONon 2016 CT ABD/PELVIS W CON [address] [place] [address] Patient: CHERYL MANN Exam Date: 07/27/2017DOB: 1950 Gender:M : LINDA MCKEON Admission #: [id number] : JESUS ERICKSON Order #: [id number] HERE TO VIEW EXAM RADIOLOGY REPORT PROCEDURE: CT ABDOMEN AND PELVIS WITH CONTRAST COMPARISON: None. INDICATIONS: Acute right lower quadrant abdominal pain and diarrhea TECHNIQUE: CT images were created with IV contrast. Axial, Coronal, and Sagittal images. DOSE: 929 mGycm; 100cc omnipaque 300 FINDINGS: LUNG BASES: No visible pulmonary or pleural disease. LIVER: No enlargement, atrophy, abnormal density, or significant focal lesion. BILIARY: No visible dilatation or calcification. PANCREAS: No lesion, fluid collection, ductal dilatation, or atrophy. SPLEEN: No enlargement or focal lesion. ADRENALS: No mass or enlargement. KIDNEYS: 9 x 7 x 6 mm nonobstructing stone at the left ureteropelvic junction. Mild hydroureter bilaterally with widely patent valves at the ureterovesical junction, likely resulting in reflux. Bilateral small renal cysts.BOWEL/MESENTERY: No visible mass, obstruction, or bowel wall thickening. Normal appendix.AORTA/VASCULAR: No aneurysm or dissection. RETROPERITONEUM: No mass or adenopathy. LYMPH NODES: No adenopathy. URINARY BLADDER: Heterogeneous lobular appearance of the floor and posterior lateral lizama; muscular hypertrophy versus tumor. PELVIC ORGANS: Prominent, slightly heterogeneous prostate protruding into the base of the bladder.ABDOMINAL WALL: No mass or hernia. BONES: No bony lesion or fracture. OTHER: Negative. CONCLUSION: 1. No abnormal or suspicious findings to account for patient's symptoms.2. Large nonobstructing left kidney stone at the ureteropelvic junction. Bilateral slightly dilated ureters with widely patent valves at the ureterovesical junction, likely allowing for chronic reflux.3. Irregular lobular thickening of the floor and posterior lateral lizama of the urinary bladder along with an enlarged prostate protruding into the bladder; muscular hypertrophy of the bladder versus tumor. Dictated by: Raina Mckay M.D. on 07/27/2017 at 15:49 Approved by: Raina Mckay M.D. on 07/27/2017 at 16:00 Normal [address] [facility] ER URINE PROFILEon 7 Bilirubin (total) Negative Normal NEGATIVE [facility] Comment on above: Performed By: #### JOSSELINE VILLANUEVA ####[facility] Tzxovfnbub2888 [address] [place] BLOOD MODERATE Normal NEGATIVE [facility] Comment on above: Performed By: #### JOSSELINE VILLANUEVA ####[facility] Ntzqmmpflm8471 [address] [place] ERUAHD A micrscopic examina tion will be performed if indicated. Normal [facility] Comment on above: Performed By: #### JOSSELINE VILLANUEVA ####[facility] Ztukppscah0236 [address] [place] Glucose mass conc Negative Normal NEGATIVE [facility] Comment on above: Performed By: #### JOSSELINE VILLANUEVA ####[facility] Fwbgcxpfqf6734 [address] [place] pH of blood 5.0 [pH] Normal 5-[address] [facility] Comment on above: Performed By: #### GENEVA VILLANUEVARO ####[facility] Fqmbyqiwmq1703 [address] [place] Protein 30 mg/dl Normal [facility] Comment on above: Performed By: #### GENEVA VILLANUEVARO ####[facility] Eksynczxhw6463 [address] [place] SPEC GRAVITY 1.010 Normal 1.005-<=1. [address] [facility] Comment on above: Performed By: #### GENEVA VILLANUEVARO ####[facility] Clryoylnxz1095 [address] [place] UR MICRO IND INDICATED Normal [facility] Comment on above: Performed By: #### MARK VILLANUEVAICRO ####[facility] Qxookylphk4644 [address] [place] Urine, clarity CLEAR Normal [facility] Comment on above: Performed By: #### MARK VILLANUEVAICRO ####[facility] Tzwtulaqqg7241 [address] [place] Urine, color LT. YELLOW Normal YELLOW [facility] Comment on above: Performed By: #### MARK VILLANUEVAICRO ####[facility] Ihsevqmimh6317 [address] [place] Urine, ketones presence Negative Normal NEGATIVE [facility] Comment on above: Performed By: #### MARK VILLANUEVAICRO ####[facility] [address] [place] [address] [place] Urine, nitrite presence Negative Normal NEGATIVE [facility] Comment on above: Performed By: #### MARK VILLANUEVAICRO ####[facility] [address] [place] [address] [place] Urine, urobilinogen 0.2 {Charleen'U}/dL Normal [facility] Comment on above: Performed By: #### MARK VILLANUEVAICRO ####[facility] [address] [place] [address] [place] WBC (Leukocytes) Negative Normal NEGATIVE [facility] Comment on above: Performed By: #### Margaret ABAD UMICRO ####[facility] Kkmzlxncqo4401 [address] [place] LIPASEon 07-27-2017 Lipase 767.0 U/L Critically high 23.0-300.0 [facility] Comment on above: Performed By: #### L IVER, LIPA, BMP ####[facility] Mguozfijig9311 [address] [place] LIVER PROFILEon 07-27-2017 Alanine aminotransferase (ALT) 49 U/L Normal 21-72 [facility] Comment on above: Performed By: #### LUPE HARMON BMP ####[facility] Llfwfafxds6299 [address] [place] Albumin 4.4 g/dL Normal 3.5-5.0 [facility] Comment on above: Performed By: #### LPUE HARMON BMP ####[facility] Ytxgliptns5330 [address] [place] Albumin/Globulin Ratio 1.4 {ratio} Normal T [facility] Comment on above: Performed By: #### LUPE HARMON BMP ####[facility] [address] [place] [address] [place] Alkaline phosphatase (ALP) 95 U/L Normal 38-[address] [facility] Comment on above: Performed By: #### LUPE HARMON BMP ####[facility] [address] [place] [address] [place] Aspartate aminotransferase (AST) 27 U/L Normal 17-[address] [facility] Comment on above: Performed By: #### LUPE HARMON BMP ####[facility] [address] [place] [address] [place] BILI, CONJUGATED 0.0 mg/dL Normal 0.0-0.3 [facility] Comment on above: Performed By: #### LUPE HARMON BMP ####[facility] [address] [place] [address] [place] Bilirubin Ql (U) 1.2 mg/dL Normal 0.2-1.[address] [facility] Comment on above: Performed By: #### LUPE HARMON BMP ####[facility] [address] [place] [address] [place] Globulin 3.1 g/dL Normal [facility] Comment on above: Performed By: #### LUPE HARMON BMP ####[facility] Oojuluhwzq6484 [address] [place] Protein 7.4 g/dL Normal 6.1-8.[address] [facility] Comment on above: Performed By: #### LUPE HARMON BMP ####[facility] Qdqtkdgkuf7552 [address] [place] PROF CHEM 8 (BAS METB)on Anion gap 17.1 mmol/L Normal [facility] Comment on above: Performed By: #### LUPE HARMON BMP ####[facility] Ivxvrvobpz1982 [address] [place] BUN/Creatinine Ratio 16.5 mg/mg Normal [facility] Comment on above: Performed By: #### LUPE HARMON BMP ####[facility] Tmoynnkoei9331 [address] [place] Calcium 9.3 mg/dL Normal 8.4-10.[address] [facility] Comment on above: Performed By: #### LUPE HARMON BMP ####[facility] Zzhkmjornl0052 [address] [place] Chloride 102 mmol/L Normal 98-107 [facility] Comment on above: Performed By: #### LUPE HARMON BMP ####[facility] Umpiwnwdfp8969 [address] [place] CO2 25.0 mmol/L Normal 22.0-30.[address] [facility] Comment on above: Performed By: #### LUPE HARMON BMP ####[facility] Ksjspwiggb0362 [address] [place] Creatinine 1.11 mg/dL Normal 0.66-1.[address] [facility] Comment on above: Performed By: #### LUPE HARMON BMP ####[facility] Ptpuojmxxt4031 [address] [place] eGFR (non-black) mL/min/{1.73_m2} Normal >=60 Th [facility] Comment on above: Performed By: #### LUPE HARMON BMP ####[facility] Fjvyzoibwd0917 [place], [place] [address]Aysyse [place] Glucose mass conc 142 mg/dL Critically high 74-106 Th [facility] Comment on above: Performed By: #### LUPE HARMON, SAROJ ####[facility] [address]wpcqlsllq1650 [place] [address] Potassium molar conc 4.3 mmol/L Normal 3.4-5.0 [facility] Comment on above: Performed By: #### LUPE HARMON BMP ####[facility] [address]jzeusfcrz8054 [place] [address] Sodium 140 mmol/L Normal 137-145 [facility] Comment on above: Performed By: #### LUPE HARMON BMP ####[facility] Dhyakvzloz2949 [place] [address] Urea nitrogen 18.0 mg/dL Normal 9.0-20.0 [facility] Comment on above: Performed By: #### LUPE HARMON BMP ####[facility] Vjmbflzord8276 [place] [address] URINE MICROSCOPIC ONLYon CAST NONE SEEN Normal NONE SEEN [facility] Comment on above: Performed By: #### JOSSELINE VILLANUEVA ####[facility] Dmggjopyve4679 [address] [place] CULTURE NOT INDICATED Normal [facility] Comment on above: Performed By: #### JOSSELINE VILLANUEVA ####[facility] Igfnpekkpk2438 [place] [address] Erythrocytes (RBC) 2-5 Normal 0-[address] [facility] Comment on above: Performed By: #### JOSSELINE VILLANUEVA ####[facility] Ufudvoduzp5696 [place] [address] MUCOUS NONE SEEN Normal NONE SEEN [facility] Comment on above: Performed By: #### JOSSELINE VILLANUEVA ####[facility] [address] [place], [place] [address] Urine, bacteria in sediment NONE SEEN Normal NONE SEEN [facility] Comment on above: Performed By: #### E RURGENEVARO ####[facility] Cknltroyix2087 [place], [place] [address]Ppnwrd [place] Urine, crystals in sediment NONE SEEN Normal NONE SEEN [facility] Comment on above: Performed By: #### E RUR, GENEVARO ####[facility] Ykdwfanzdf0315 [place], [place] [address]Cfpbkt [place] Urine, epithelial cells in sediment NONE SEEN Normal [facility] Comment on above: Performed By: #### E RUR, UMICRO ####[facility] Nskgfmiqzz9016 [place], [place] [address]Wcgfps [place] WBC (Leukocytes) NONE SEEN Normal NONE SEEN [facility] Comment on above: Performed By: #### E RUR, UMICRO ####[facility] Exheuhdhmk44[address] [place] [address] Vital Signs Date Time Vital Sign Value Performing Clinician Faci lity 06-08-2022 13:38-0400 Diastolic blood pressure 105 mm[Hg] DO Lawson Kishorlaishachilango Work Phone: [facility] 06-08-2022 13:38-0400 Heart rate 108 /min DO Lawson Mahogany Work Phone: [facility] 06-08-2022 13:38-0400 Respiratory rate 16 /min DO Lawson Kishorlaishachilango Work Phone: [facility] 06-08-2022 13:38-0400 SaO2% (BldA) [Mass fraction] 98 % DO Lawson Kishorlaishachilango Work Phone: [facility] 06-08-2022 13:38-0400 Systolic blood pressure 165 mm[Hg] DO Lawson Kishorlaishachilango Work Phone: [facility] 06-08-2022 13:15-0400 Body height 167.64 cm DO Lawson Kishorlaishachilango Work Phone: [facility] 06-08-2022 13:150400 Body temperature 98 [degF] DO Lawson Vides Work Phone: [facility] 06-08-2022 13:150400 Body weight 63.45 kg DO Lawson Vides Work Phone: [facility] Encounters Encounter Date Encounter Type Care Provider Facility Start: 11-30-2023 End: 11-30-2023 ambulatory LAWSON Castro POCOS Not Available Start: 11-26-2023 End: 11-26-2023 ambulatory KIZZY ESPINOSA Not Available Start: 11-20-2023 End: 11-20-2023 ambulatory KIZZY ESPINOSA Not Available Start: 11-16-2023 End: 11-16-2023 ambulatory KIZZY ESPINOSA Not Available Start: 11-02-2023 End: 11-03-2023 ambulatory RONALD POCOS Not Available Start: 06-08-2022 End: 06-08-2022 Emergency department patient visit Rodo Milton Garcia Facility:[facility] Start: 06-08-2022 End: 06-08-2022 Emergency department patient visit DO Lawson Vides Work Phone: [facility] [place] [facility] Start: 01-09-2022 Telephone encounter Lashaun Jaimes RN Hematology/Oncology Comment on above: Results Start: 11-18-2021 End: 11-18-2021 Patient encounter procedure Lawson Infante [facility] Start: 07-27-2017 End: 07-27-2017 Ambulatory JESUS ERICKSON Facility:[facility]1 Procedures Date Procedure Procedure Detail Performing Clinician Start: 06-08-2022 CT angiography of thorax DO Lawson Vides Work Phone: Start: 06-08-2022 Plain chest X-ray DO Ubaldo Vides Work Phone: Start: 06-08-2022 CT of head without contrast DO Lawson Vides Work Phone: Start: 05-17-2020 Adult depression scr eening assessment Lashaun Jaimes RN Plan of Treatment Date Care Activity Detail Author Start: 04-06-2022 Influenza vaccination INFLUENZA (Season Ended) [facility] Start: 08-08-2021 COVID-19 VACCINE (3 - Booster for Pfizer series) COVID-19 VACCINE (3 - Booster for Pfizer series) [facility] Start: 08-06-2021 ADVANCE DIRECTIVE DISCUSSION ADVANCE DIRECTIVE DISCUSSION [facility] Start: 05-17-2021 Adult depression screening assessment DEPRESSION SCREENING [facility] Start: 11-06-2018 PNEUMOCOCCAL: 65+ (2 - PCV) PNEUMOCOCCAL: 65+ (2 - PCV) [facility] Start: 07-14-2015 SHINGRIX VACCINE (1 of 2) SHINGRIX VACCINE (1 of 2) [facility] Start: 1994 COLOGUARD (FIT-DNA) COLOGUARD (FIT-DNA) [facility] Start: 1994 Colonoscopy COLONOSCOPY [facility] Start: 1994 COLORECTAL CANCER SCREENING COLORECTAL CANCER SCREENING [facility] Start: [address] COLONOGRAPHY [facility] Start: 1994 DIABETES SCREEN DIABETES SCREEN [facility] Start: 1994 FECAL OCCULT BLOOD FECAL OCCULT BLOOD [facility] Start: 1994 SIGMOIDOSCOPY SIGMOIDOSCOPY [facility] Start: 1984 LIPID SCREEN LIPID SCREEN [facility] Start: 1968 Urine microalbumin profile DTAP,TDAP,TD (1 - Tdap) [facility] Start: 1967 HEPATITIS C SCREENING HEPATITIS C SCREENING [facility] Start: 1950 ABDOMINAL AORTIC ANEURYSM SCREENING ABDOMINAL AORTIC ANEURYSM SCREENING [facility] Patient Education Palpitations ED [facility] Work Phone: Patient referral [facility] Work Phone: Immunizations Immunization Date Immunization Notes Care Provider Fa lisa 07-02-2018 influenza, high dose seasonal, preservative-free Lashaun Jaimes RN [facility] 11-06-2017 pneumococcal polysaccharide vaccine, 23 valent Lashaun Jaimes RN [facility] 05-23-2017 influenza, injectabl e, quadrivalent, preservative free Lashaun Jaimes RN [facility] 05-19-2015 zoster vaccine, live Lashaun Jaimes RN [facility] Payers Date Payer Category Payer Self-pay [id number] 2022 Unknown [id number] 2019 Private Health Insurance [facility] [employer] [id number] 2019-Present [phone] [address] [place] [address] PPO [id number] 2014 Medicare MEDICARE MEDICAR E A AND B [id number] 2014-Present [phone] [place] [address] Medicare [id number] 1959 Medicare [id number] 1950 Unknown [id number] [id number] 1950 Unknown [id number] [id number] 1950 Unknown [id number] [id number] 1950 Unknown [id number] [id number] 1950 Unknown [id number] [id number] 1950 Unknown [id number] [id number] Unknown [facility] [id number] Unknown [id number] [id number] Social History Date Type Detail Facility Tobacco smoking status [facility] Sex Assigned At Male [facility] Start: 10-16-2019 End: 06-08-2022 Tobacco smoking status NHIS Ex-smoker [facility] End: 10-15-1988 History of tobacco use Current smoker [facility] Start: 10-16-2019 Cigarettes smoked current (pack per day) - Reported 0.5 [facility] Start: 10-16-2019 Tobacco use and exposure Smokeless tobacco non-user [facility] Start: 09-01-2021 Alcohol intake Ex-drinker (finding) [facility] Start: 1950 Sex Assigned At Not on file C [facility] Start: 1950 Sex Assigned At Male F [facility] Note 01-09-2022 Telephone Encounter - Lashaun Jaimes RN - 01/09/2022 3:02 PM EDT Note Date & Type Note Facility 01-09-2022 Miscellaneous Notes Received message from Alyssa at [facility] stating pt left them a message that he has never been given results or f/u after his PET scan in October. Dr Carbone/Kathie PLAY THERAPIST: Please contact pt. Thank you. Lashaun Jaimes RN documented in this encounter [facility] Progress note 10-12-2021 Note Date & Type Note Facility 10-12-2021 Note HNO ID: [id number] Author: Brendan Parra RT(R) Service: Nuclear Medicine Author Type: Technologist Type: Progress Notes Filed: 10/12/2021 2:46 PM Note Text: RADIOLOGY SERVICE PROGRESS NOTE SERVICE DATE: 10/12/2021 SERVICE TIME: 2:45 PM PATIENT IDENTITY VERIFICATION COMPLETED USING TWO (2) STANDARD IDENTIFIERS: Name and Date of confirmed by patient verbally FALL SCREENING: Has the patient had 2 falls in the last year or 1 fall with injury or currently using an Ambulatory Assistive Device (Walker, Cane, Wheelchair, Crutches, etc.)? No PATIENT GENDER DATA: .male : No ALLERGIES: Reviewed and unchanged MEDICATIONS REVIEWED: No PATIENT RELEVANT IMPLANT DATA REVIEWED: Not Applicable CREATININE: No results found for: CREAT, EGFROTH, EGFRAA P.O.C.T. RESULTS: N/A October 12, [address] PERFORMED: No IV SITE: Ambulatory: A peripheral IV was started in the Left antecubital site with a Angio cath: 22 gauge. POST EXAM PIV STATUS: Discontinued PROCEDURE TYPE: NM INJECT: PET PSMA SCAN. 10.2 mCi F18- PSMA. No other medications given.. ADMINISTRATION TIME: 1440 PATIENT DISCHARGED TO: Ambulatory patient, left NM department area. A Diagnostic radioactive procedure has taken place, with no further precautions necessary other than routine body substance precautions. More information regarding radiation safety can be found using this link: [email or web address] SIGNATURE: RT Hiral(R) PATIENT NAME: Dung Mann DATE: October 12, 2021 TIME: 2:45 PM PAGER/CONTACT #: [facility] Progress note 09-01-2021 Note Date & Type Note Facility 09-01-2021 Note HNO ID: [id number] Author: Jesus Carbone MD Service: ? Author Type: Physician Type: Progress Notes Filed: 09/05/2021 2:24 PM Note Text: ##PROSTATE CANCER INITIAL ENCOUNTER## Chief Complaint: Prostate cancer Consult or Referral: Consultation requested by Dr. Jeronimo Vasquez MD for an opinion regarding prostate cancer. My final recommendations will be communicated back to the requesting physician by way of shared Medical record or letter to requesting physician via US mail. History of Present Illness: Dung Mann is a very pleasant 71 year old male who presents with a history of Prostate Cancer Per Dr Decker OVF on 05/19/2021 ONCOLOGIC HISTORY AND TREATMENT DETAILS: ? Diagnosed with high risk localized prostate cancer in 2019 (iPSA 72, [place] 4+4) ? March 25, 2019 RPLND (Dr. Parks). Pathology consistent with [place] 4+4 adenocarcinoma, with focal extraprostatic extension, right seminal vesicle invasion and perineural invasion, Margins were negative and 0 out of 6 nodes were positive (pT3bN0). Postoperative course was complicated by a slow recovery period of almost 5 months per patient. ? Post-operative PSA was 27 (1--20) and increased to 35 (2-10-20) ? September 09, 2019 Axumin PET showed hypermetabolic right external iliac node without other areas of uptake ? September 25, 2019 leuprolide, received total 2 doses; was switched to goserelin due to leuprolide shortage, received 2 doses last in December 2020 (total ADT duration of ~1.5 years). Side effects included myalgias and arthralgias, for which ADT was discontinued per patient preference ? April 05, 2020 completed salvage RT (7020 cGy in 39 fractions) ? Post-RT PSA was 7 (10-5-20) ? October 12, 2020 CT and bone scans without any evidence of distant disease ? Last dose of goserelin in December 2020 ? PSA values 4.8 (12-01-) --> 5.12 (--) --> 3.9 (8-; christian) ? April 2021 Axumin PET scan reportedly showing continued presence of the right external iliac node, report not available to me IPSS 2 QOL 0 JACEK 25 Is interested in salvage HIFU, but not really an option for recurrence in a lymph node Past Medical History: PAST MEDICAL HISTORY Diagnosis Date - Hypercholesteremia Past Surgical History: PAST SURGICAL HISTORY Procedure Laterality Date - PAST SURGICAL HISTORY OF 2019 prostatectomy - PAST SURGICAL HISTORY OF Left knee arthroscopy Problem List: There is no problem list on file for this patient. Medications Current Outpatient Medications on File Prior to Visit Medication Sig - tamsulosin ER (FLOMAX) 0.4 mg Take 1 capsule by mouth daily at bedtime. (Patient not taking: Reported on 03/22/2020 ) - atorvastatin (LIPITOR) 80 mg tablet Take 80 mg by mouth once daily. - Nztnm-4-DUX-EPA-Fish Oil (FISH OIL) 1,000 mg (120 mg-180 mg) cap Take 2 g by mouth twice daily. - aspirin, enteric coated (ADULT LOW DOSE ASPIRIN) 81 mg EC tablet Take 81 mg by mouth every other day. - vitamin E, dl,tocopheryl acet, (VITAMIN E, DL, ACETATE,) 1,000 unit cap Take by mouth. - coenzyme Q10 (COQ-10) 100 mg cap capsule Take 100 mg by mouth twice daily. - MULTIVITAMIN ORAL Take by mouth. No current facility-administered medications on file prior to visit. Family History: FAMILY HISTORY Problem Relation Age of Onset - Prostate Cancer Brother Social History: Social History Tobacco Use - Smoking status: Former Smoker Packs/day: 0.50 Years: 20.00 Pack years: 10.00 Quit date: 10/15/1988 Years since quittin.9 - Smokeless tobacco: Never Used Substance Use Topics - Alcohol use: Not Currently - Drug use: Not Currently Allergies: Patient has no known allergies. Review of Systems: Review of Systems: GENERAL: No weight loss, malaise or fevers. HEENT: Negative for frequent or significant headaches, No changes in hearing or vision, no nose bleeds or other nasal problems NECK: Negative for goiter, pain or significant neck swelling RESPIRATORY: Negative for cough, hemoptysis, wheezing, COPD, dyspnea or shortness of breath CARDIOVASCULAR: Negative for chest pain, leg swelling, CHF or palpitations GI: No nausea, vomiting, or diarrhea : No history of dysuria, frequency or incontinence MUSCULOSKELETAL: Negative for joint pain or swelling, back pain or muscle pain SKIN: Negative for lesions, rash, and itching. PSYCH: Negative for sleep disturbance, mood disorder and recent psychosocial stressors. HEMATOLOGY/LYMPHOLOGY: Negative for prolonged bleeding, bruising easily or swollen nodes. The remainder of the review of systems is negative. Imaging: Axumin PET right external iliac node 2019 I personally viewed all applicable imaging and interpreted them and went over the results with the patient. Physical Exam: Patient is a 71 year old male Constitutional: Vitals: There were no vitals taken for this visit. General Appearance Adult: Alert, no acute distre (more content not included)... [facility] Clinical Note 09-01-2021 Note Date & Type Note Facility 09-01-2021 Note Patient Outreach (UR OLMN) DUNG MANN ([id number]) 1950 M Date Time Provider Department 09/01/21 JESUS CARBONE During your visit today, we recorded the following information about you: Allergies As of Date: 09/01/2021 (No Known Allergies) Date Reviewed: 09/01/2021 Reviewed by: Estephania Hillman MA - Fully Assessed Visit Diagnosis:Screening for genitourinary condition [Z13.89] Order(s):URINALYSIS, DIPSTICK ONLY [SQUA] Order #: [id number] Prescriptions as of 09/05/2021 - tamsulosin ER (FLOMAX) 0.4 mg Take 1 capsule by mouth daily at bedtime. - atorvastatin (LIPITOR) 80 mg tablet Take 80 mg by mouth once daily. - Rwxqe-9-AZB-EPA-Fish Oil (FISH OIL) 1,000 mg (120 mg-180 mg) cap Take 2 g by mouth twice daily. - aspirin, enteric coated (ADULT LOW DOSE ASPIRIN) 81 mg EC tablet Take 81 mg by mouth every other day. - vitamin E, dl,tocopheryl acet, (VITAMIN E, DL, ACETATE,) 1,000 unit cap Take by mouth. - coenzyme Q10 (COQ-10) 100 mg cap capsule Take 100 mg by mouth twice daily. - MULTIVITAMIN ORAL Take by mouth. Problem List As Of Date: 09/01/2021 (None) Encounter Status:Closed by [employer] on 09/05/21 [facility] Progress note 05-19-2021 Note Date & Type Note Facility 05-19-2021 Note HNO ID: [id number] Author: Jeronimo Vasquez MD Service: ? Author Type: Physician Type: Progress Notes Filed: 05/19/2021 12:33 PM Note Text: ONCOLOGY INITIAL CONSULTATION May 19, 2021 REFERRAL REQUESTED BY: Joellen Downey PCP and other physicians involved in patient's care: Lawson Bolanos (PCP), Joellen Murillo (oncology) REASON FOR CONSULTATION: Prostate adenocarcinoma ONCOLOGIC HISTORY AND TREATMENT DETAILS: ? Diagnosed with high risk localized prostate cancer in 2019 (iPSA 72, Gu[place] 4+4) ? March 25, 2019 [facility] (Dr. Parks). Pathology consistent with [place] 4+4 adenocarcinoma, with focal extraprostatic extension, right seminal vesicle invasion and perineural invasion, Margins were negative and 0 out of 6 nodes were positive (pT3bN0). Postoperative course was complicated by a slow recovery period of almost 5 months per patient. ? Post-operative PSA was 27 (1-22-20) and increased to 35 (2-10-20) ? September 09, 2019 Axumin PET showed hypermetabolic right external iliac node without other areas of uptake ? September 25, 2019 leuprolide, received total 2 doses; was switched to goserelin due to leuprolide shortage, received 2 doses last in December 2020 (total ADT duration of ~1.5 years). Side effects included myalgias and arthralgias, for which ADT was discontinued per patient preference ? April 05, 2020 completed salvage RT (7020 cGy in 39 fractions) ? Post-RT PSA was 7 (10-5-20) ? October 12, 2020 CT and bone scans without any evidence of distant disease ? Last dose of goserelin in December 2020 ? PSA values 4.8 (-28-21) --> 5.12 (7-13-21) --> 3.9 (8-19-21; christian) ? April 2021 Axumin PET scan reportedly showing continued presence of the right external iliac node, report not available to me HPI: This is a 71-year-old male who comes to the clinic with a history of prostate cancer. His oncologic history and treatment details are as noted above. Currently he is on no treatment for his prostate cancer. His last goserelin injection was approximately December 2020. His last PSA was in March 2021 (likely reflective of the goserelin injection in December 2020) and noted to be at 3.9. Overall he feels well. He denies any fevers, chills, night sweats, weight loss, focal bony pain or back pain. No urinary or rectal symptoms. He endorses intermittent mild right lower quadrant abdominal pain, which he is not experiencing at the moment. Most recent PET scan from April 2021 showed continued presence of the right external iliac node. His PSA continues to be detectable (last in March 2021 at 3.9), although has been stable since November 2020. His last dose of ADT was in December 2020. ADT was discontinued per patient preference given significant side effects such as myalgias, arthralgias and hot flashes. Patient states that he will never again try ADT as he wishes to focus on quality of life. He is looking into alternative treatments such as ultrasound for his prostate cancer. He does not wish for any further surgery or radiation treatments. He does not wish for chemotherapy like medications. Given his coronary artery calcifications, he is taking EDTA chelation. Denies any bleeding symptoms. 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 Family history is noncontributory. He denies any substance abuse. MEDICATIONS AND ALLERGIES: Reviewed PHYSICAL EXAM BP 167/86 Pulse 110 Temp 36.5 ?C (97.7 ?F) (Temporal) Resp 16 Ht 165.6 cm (5' 5.2 ) Wt 63.5 kg (140 lb) SpO2 98% BMI 23.16 kg/m? PS - 0, Head atraumatic, no pallor, icterus or lymphadenopathy, lungs clear to auscultation, heart exam notable for 3/6 systolic murmur in the aortic region, abdomen soft without distension or organomegaly, neuro grossly non-focal, skin without rash, extremities without swelling LABORATORY, IMAGING AND PATHOLOGY CBC, CMP, PSA, pathology and scans reviewed ASSESSMENT AND RECOMMENDATIONS 71 male with prostate adenocarcinoma, diagnosed in 2019 has localized high risk disease with a PSA of 72, initially treated with surgery and lymph node dissection, followed by PSA persistence leading to salvage RT and ADT in 2019?2020. After the initial resection of the prostate, the only known site of disease based on the PET scan in 2019 was the right external iliac node. Since then, the patient has received a total duration of approximately 1-1.5 years of ADT along with salvage RT. Despite this, his PSA has failed to be undetectable. Additionally, the patient tells me that the most recent PET scan done in April (more content not included)... [facility] Evaluation + Plan note Note Date & Type Note Facility Evaluation + Plan note No data available for this section [facility] Evaluation note Note Date & Type Note Facility Evaluation note No assessment information availa [facility] Work Phone: Hospital Discharge instructions Note Date & Type Note Facility Hospital Discharge instructions No data available for this section [facility] Hospital Discharge instructions Note Date & Type Note Facility Hospital Discharge instructions Additional Instructions Follow-up with your primary care doctor Return to ED if you develop worsening symptoms or concerns [facility] Work Phone: Summary Purpose Family History No Family History Records FoundNo Family History Records FoundNo Family History Records FoundNo Family History Records FoundNo Family History Records Found Advance Directives No Advanced Directives Records Found Advance Directive Response Recorded Date/ Time Advance Directives No June 08, 2022 1:12pm Chief Complaint and Reason for Visit Chief Complaint headache,bp up Additional Source Comments (unrecognized sect ion and content) No Status Records FoundNo Status Records FoundNo Status Records FoundNo Status Records FoundNo Status Records Found INFORMATION SOURCE (unrecogn ized section and content) DATE CREATED AUTHOR 01/24/2018 [facility] DATE CREATED AUTHOR AUTHOR'S ORGANIZ ATION 11/26/2021 [facility] DATE CREATED AUTHOR AUTHOR'S ORGANIZ ATION 01/10/2022 [facility] DATE CREATED AUTHOR AUTHOR'S ORGANIZ ATION 09/09/2022 [facility] DATE CREATED AUTHOR AUTHOR'S ORGANIZ ATION 12/02/2023 [facility] EPIC Source Comments (unrecognize d section and content) In the event this informatio n is protected by the Federal Confidentiality of Alcohol and Drug Abuse Patient Records regulations: The Federal rules restrict any use of the information to criminally investigate or prosecute any alcohol or drug abuse patient.[facility] Reason for Visit (unrecogniz ed section and content) Reason Comments Results Care Teams (unrecognized sec tion and content) Polishing Machine Operator Relationship Specialty Start Date End Date Lawson Bolanos PCP - General Family Practice 10/04/16 Team Status: Inactive Member Role Status Dates Lawson Vides DO Primary Care Provider Active Rodo M Radha , DO Emergency Provider Active Team Status: Active Member Role Status Dates Lawson Vides , DO Primary Care Provider Active Goals (unrecognized section and content) Goals may be documented in a n alternate section FOR RECORDS PERTAINING TO PATIENTS WHO ARE OR HAVE BEEN ENROLLED IN A CHEMICAL DEPENDENCY/SUBSTANCEABUSE PROGRAM, SOME INFORMATION MAY BE OMITTED. This clinical summary was aggregated from multiple sources. Caution should be exercised in using it in the provision of clinical care. This summary normalizes information from multiple sources, and as a consequence, information in this document may materially change the coding, format and clinical context of patient data. In addition, data may be omitted in some cases. CLINICAL DECISIONS SHOULD BE BASED ON THE PRIMARY CLINICAL RECORDS. [facility]. provides no warranty or guarantee of the accuracy or completeness of information in this document.
== END 2024-05-22 12:45 | disposition home or self-care (01) ==
LOC: CT 12:44
PROVIDERS: PCP Family Medicine
DX: C61 Malignant neoplasm of prostate (principal); R91.8 Other nonspecific abnormal finding of lung field; K80.20 Calculus of gallbladder without cholecystitis without obstruction
CPT/HCPCS: 71250; 74176

== ENCOUNTER 2025-07-22 09:35 | Outpatient (OUT) | payer OTHER, SELFPAY ==
--- OUTSIDE RECORDS SUMMARY | 2025-07-10 14:45 | XMS_ITS | Encounter Summary ---
Author Organization [facility] Address [address] [place] [address] Care Team Providers Care Book Jogger Name Role Phone Florentin Vides MD Primary Care Provider [phone] Reason for Referral * Imaging (Routine) - Pending ReviewSpecialtyDiagnoses / ProceduresReferred By ContactReferred To ContactCardiology Diagnoses Nonrheumatic aortic valve stenosis Non-rheumatic mitral regurgitation Procedures Transthoracic echo (TTE) complete Gerry Tariq MD [address] [facility] [place] [address] Phone: tel: fax: Referral IDStatusReasonStart DateExpiration DateVisits RequestedVisits [id number] Review Perform Procedure Encounter Details DateTypeDepartmentCare Team (Latest Contact Info)Uiowbigqwmw82/05/2025 2:45 PM ESTOffice Visit [facility] [address] [place] [address] Gerry Tariq MD [address] [place] [address] Nonrheumatic aortic valve stenosis (Primary Dx); Mixed hyperlipidemia; Other chest pain; Non-rheumatic mitral regurgitation Social History Tobacco UseTypesPacks/DayYears UsedDateSmoking Tobacco: FormerCigarettes Smokeless Tobacco: Never Tobacco Cessation:Counseling Given: Not Answered [place] Safety & EnvironmentAnswerDate RecordedFear of Current or Ex-PartnerNot on file01/31/2024Emotionally AbusedNot on file01/31/2024hysically AbusedNot on file01/31/2024Sexually AbusedNot on file01/31/2024hysically or Sexually Abused Not on file01/31/2024Sex and Gender InformationValueDate RecordedSex Assigned at QbenqDxmx67/05/2025 2:41 PM ESTLegal KuaPnnj7901/31/2024 1:18 PM EDTGender VetamhcaPtfu24/05/2025 2:41 PM ESTSexual OrientationHeterosexual or Straight 07/10/2025 2:41 PM ESTdocumented as of this encounter Last Filed Vital Signs Vital SignReadingTime TakenCommentsBlood Ynllryxr782/8807/10/2025 3:56 PM EST Itwgi281107/10/2025 3:56 PM ESTTemperature--Respiratory Rate--Oxygen Wkpjqruwef11% 07/10/2025 3:56 PM ESTInhaled Oxygen Concentration--Mabczj71.6 kg (138 lb) 07/10/2025 3:56 PM DBSBbzmzp152.6 cm (5' 6 )07/10/2025 3:56 PM ESTBody Mass Index22.27109/10/2024 3:56 PM ESTdocumented in this encounter Progress Notes * Gerry Tariq MD - 07/10/2025 2:45 PM EST Images from the original note were not included. [place] [facility] Subjective Levy Morales is a 75 y.o. year old male patient being seen to establish care for aortic valve stenosis and hyperlipidemia. Had echo in January 2024, which showed moderate aortic stenosis. Denies palpitations. Has been having intermittent chest pain, radiating to both UE. Says this was relieved withrest. Hasn't had this pain for the past few weeks and is feeling better. Problem List[1] Family History[2] Social History[3] HPI He is seen as a new patient to establish care and for aortic valve stenosis and hyperlipidemia. He is a 75-year-old man with history of aortic valve stenosis, hyperlipidemia. He has history of prostate cancer, on treatment. he is on aspirin 81 mg daily, atorvastatin 80 mg daily. Echocardiogram in January 2024 showed moderate aortic valve stenosis and mild to moderate mitral regurgitation with normal ventricular systolic function. Today he denies shortness of breath and palpitations and syncope. He does have symptoms of chest pain that happen with exertion reported as located in the center of the chest sometimes with radiationto the arms relieved by rest. Review of Systems Cardiovascular: Positive for chest pain. Musculoskeletal: Positive for arthritis and joint pain. Objective Visit Vitals BP 138/88 (BP Location: Left arm, Patient Position: Sitting) Pulse 92 Ht 1.676 m (5' 6 ) Wt 62.6 kg (138 lb) SpO2 98% BMI 22.27 kg/m?? Smoking Status Former BSA 1.71 m?? Physical Exam Constitutional: Appearance: He is well-developed. He is not ill-appearing. HENT: Head: Normocephalic and atraumatic. Nose: Nose normal. Eyes: General: No scleral icterus. Pupils: Pupils are equal, round, and reactive to light. Neck: Thyroid: No thyromegaly. Vascular: No JVD. Cardiovascular: Rate and Rhythm: Normal rate and regular rhythm. Pulses: Radial pulses are 2+ on the right side and 2+ on the left side. Heart sounds: Murmur heard. Systolic (RUSB) murmur is present with a grade of 2/6. No friction rub. No gallop. Pulmonary: Effort: Pulmonary effort is normal. No respiratory distress. Breath sounds: Normal breath sounds. No wheezing or rales. Chest: Chest wall: No tenderness. Abdominal: General: Bowel sounds are normal. There is no distension. Palpations: Abdomen is soft. Tenderness: There is no abdominal tenderness. Musculoskeletal: General: No swelling. Cervical back: Neck supple. Skin: General: Skin is warm and dry. Neurological: General: No focal deficit present. Mental Status: He is alert and oriented to person, place, and time. Psychiatric: Mood and Affect: Mood normal. Behavior: Behavior is cooperative. Judgment: Judgment normal. Allergies Allergies[4] Medications Current Medications[5] Recent Labs Blood testing 06/08/2025: k 4.5, BUN 18.8, Cr 1.2, eGFR 63, chol 200, LDL 118, HDL 69, TG 133. LFTs within normal. Imaging and other tests ECG 12/31/2024: normal sinus rhythm with sinus arrhythmia. Normal ECG. Echocardiogram 01/29/2024: CONCLUSION: 1. Mild concentric left ventricular hypertrophy with normal systolic function. LVEF is 55%. 2. Normal right ventricular size and systolic function. 3. Mild diastolic dysfunction. 4. Moderate aortic valve stenosis. 5. Mild to moderate mitral regurgitation. 6. Normal right-sided pressures. Stress test 11/29/2020: Normal myocardial perfusion stress test with no evidence of stress-induced perfusion abnormality ormyocardial infarct/scar. Normal left ventricular function. Left ventricular ejection fraction is calculated at 59%. Assessment/Plan Diagnoses and all orders for this visit: Nonrheumatic aortic valve stenosis - Transthoracic echo (TTE) complete; Future Mixed hyperlipidemia - rosuvastatin (Crestor) 40 mg tablet; Take 1 tablet (40 mg) by mouth in the morning. - Lipid panel; Future Other chest pain - Lexiscan Stress Myocardial Perfusion Imaging; Future Non-rheumatic mitral regurgitation - Transthoracic echo (TTE) complete; Future 1. Aortic valve stenosis nonrheumatic: Moderate by echocardiogram January 2024. I will check a follow-up echocardiogram. 2. Nonrheumatic mitral regurgitation: Mild to moderate by prior echocardiogram January 2024. Check a follow-up echocardiogram. 3. Chest pain: Suggestive of possible myocardial ischemia. Continue aspirin and statin therapy. Check a stress test. He cannot perform treadmill exercise, therefore will check a Lexiscan stress test with myocardial perfusion imaging. 4. Hyperlipidemia: Not controlled on the current atorvastatin 80 mg daily according to the recent blood testing. I will change it to rosuvastatin 40 mg daily. I will check a lipid panel in 3 months. Unless needed before I will plan on seeing him in follow-up in 3 months. Follow up in about 3 months (around 10/08/2025). 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) Renal calculus Solitary pulmonary nodule Tinnitus [2] Family History Problem Relation Name Age of Onset Nephrolithiasis Mother Heart failure Mother Diabetes type II Mother Other (abdominal aortic aneurysm) Father Other (defibrillator) Brother Heart attack Brother Cancer Brother [3] Social History Tobacco Use Smoking status: Former Types: Cigarettes Smokeless tobacco: Never [4] No Known Allergies [5] Current Outpatient Medications: aspirin 81 mg EC tablet, Take 81 mg by mouth in the morning., Disp: , Rfl: cholecalciferol (Vitamin D-3) 25 MCG (1000 UT) capsule, in the morning., Disp: , Rfl: coenzyme Q-10 100 mg capsule, Take 100 mg by mouth twice a day., Disp: , Rfl: pyridoxine (B-6) 50 mg tablet, Take 50 mg by mouth in the morning., Disp: , Rfl: relugolix 120 mg tablet, Take 120 mg by mouth once daily as directed., Disp: , Rfl: vitamin E, dl,tocopheryl acet, (vitamin E, dl, acetate,) 1000 Units capsule, Take by mouth., Disp: , Rfl: rosuvastatin (Crestor) 40 mg tablet, Take 1 tablet (40 mg) by mouth in the morning., Disp: 90 tablet, Rfl: 3 documented in this encounter Plan of Treatment NameTypePriorityAssociated DiagnosesOrder ScheduleTransthoracic echo (TTE) completeEchocardiographyRoutine Nonrheumatic aortic valve stenosis Non-rheumatic mitral regurgitation Expected: 07/10/2025 (Approximate), Expires: 07/10/2027Lexiscan Stress Myocardial Perfusion ImagingCardiac ServicesRoutine Other chest pain Expected: 07/10/2025 (Approximate), Expires: 07/10/2027Lipid panelLabRoutine Mixed hyperlipidemia Expected: 10/08/2025 (Approximate), Expires: 07/10/2026documented as of this encounter Visit Diagnoses Diagnosis Nonrheumatic aortic valve stenosis- Primary Mixed hyperlipidemia Other chest pain Non-rheumatic mitral regurgitation documented in this encounter Care Teams Team MemberRelationshipSpecialtyStart DateEnd Date Florentin Vides MD [address] [place] [address] PCP - Zhwrlid96/3/25documented as of this encounter
--- OUTSIDE RECORDS SUMMARY | 2025-07-22 09:38 | XMS_ITS | Clinical Summary ---
Author Organization [facility] Address [address] [place] [address] Care Team Providers Care Production Superintendent Name Role Phone Florentin Bolanos DO Primary Care Provider Allergies No known active allergies Medications MedicationSigDispense QuantityRefillsLast FilledStart DateEnd DateStatus atorvastatin (LIPITOR) 80 mg tablet Take 80 mg by mouth once daily.Active Qppqr-3-TIU-EPA-Fish Oil (FISH OIL) 1,000 mg (120 mg-180 mg) cap Take 2 g by mouth twice daily.Active aspirin, enteric coated (ADULT LOW DOSE ASPIRIN) 81 mg EC tablet Take 81 mg by mouth every other day. Active vitamin E, dl,tocopheryl acet, (VITAMIN E, DL, ACETATE,) 1,000 unit cap Take by mouth.Active coenzyme Q10 (COQ-10) 100 mg cap capsule Take 100 mg by mouth twice daily.Active MULTIVITAMIN ORAL Take by mouth.Active tamsulosin ER (FLOMAX) 0.4 mg Take 1 capsule by mouth daily at bedtime. 30 capsule Active Additional Information Patient not taking.Reason: Other, Reported on 03/22/2020 Active Problems No known active problems Immunizations ImmunizationAdministration DatesNext Dueinfluenza (HD-IIV3) vaccine, age 65+ yr, high dose, trivalent, PF (FLUZONE HIGH-DOSE)07/02/2018influenza (IIV4) vaccine, age 6 mo - 64 yr, quadrivalent, PF (AFLURIA, FLUARIX, FLULAVAL, FLUZONE) 05/23/2017pneumococcal polysaccharide (PPV23) vaccine, 23 valent (PNEUMOVAX 23) 11/06/2017zoster (ZVL) vaccine, live (ZOSTAVAX)05/19/2015 Family History Medical HistoryRelationCommentsProstate CancerBrotherRelationStatusComments BrotherAlive Social History Tobacco UseTypesPacks/DayYears UsedDateSmoking Tobacco: FormerCigarettes0.520 10/15/1968 - 10/15/1988Smokeless Tobacco: NeverAlcohol UseStandard Drinks/Week CommentsNot Currently0 (1 standard drink = 0.6 oz pure alcohol)PHQ-2AnswerDate RecordedPHQ-2 yubql643Area Deprivation IndexAnswerDate RecordedNational Score (1-100), lower number is lower riskNot on file07/15/2020State Score (1- 10), lower number is lower riskNot on file07/15/2020Data from: https://www.neighborhoodatlas.medicine.[facility].edu/. Last address used for calculationNot on file07/15/2020Sex and Gender InformationValueDate RecordedSex Assigned at BirthNot on fileLegal OlyRajv7710/04/2016 1:10 PM ESTGender Identity Not on fileSexual OrientationNot on file Last Filed Vital Signs Vital SignReadingTime TakenCommentsBlood Scdmwbpg694/90009/01/2021 2:30 PM EST patient does not take BP meds just high when at lgishnUnqho07136/27/2022 2:30 PM XYBIaiwcgkocop29.5 ??C (97.7 ??F)05/19/2021 11:04 AM EDTRespiratory Rate16 05/19/2021 11:04 AM EDTOxygen Gacbyuxggn38%05/19/2021 11:04 AM EDTInhaled Oxygen Concentration--Wlrcan50.1 kg (148 lb)09/01/2021 2:30 PM ITCXoqnqy872.6 cm (5' 6 )09/01/2021 2:30 PM ESTBody Mass Index23.8909/01/2021 2:30 PM EST Plan of Treatment Health MaintenanceDue DateLast DoneCommentsAnxiety Mhvvdmlew66/16/1967Depression Gwndyoiqj93/16/1967Hepatitis C Wuerzhfmn44/16/1967DTaP,Tdap,Td Vaccine (1 - Tdap)1968Diabetes Oriehwkbo15/16/1994Shingrix Vaccine (2 of 3)07/14/2015 05/19/2015Pneumococcal Vaccine: 50+ (2 of 2 - PCV)/10/2017RSV Vaccine (1 - 1-dose 75+ series)2024dvance Directive Dnfeuuloet35/01/2025 Covid-19 Vaccine (3 - 2024- season)/10/2020, 02/15/2021Influenza Vaccine (#1)/, 05/23/2017 Insurance Care Teams Team MemberRelationshipSpecialtyStart DateEnd Date de Florentin Kelly DO PCP - GeneralFamily Medicine10/04/16
--- OUTSIDE RECORDS SUMMARY | 2025-07-22 09:38 | XMS_ITS | Clinical Summary ---
Author Organization [facility] Address [address] [place] [address] Care Team Providers Care Premium Representative Name Role Phone Florentin Vides MD Primary Care Provider [phone] Allergies No known active allergies Medications MedicationSigDispense QuantityRefillsLast FilledStart DateEnd DateStatus relugolix 120 mg tablet Take 120 mg by mouth once daily as directed.5Active coenzyme Q-10 100 mg capsule Take 100 mg by mouth twice a day.Active pyridoxine (B-6) 50 mg tablet Take 50 mg by mouth in the morning.4Active cholecalciferol (Vitamin D-3) 25 MCG (1000 UT) capsule in the morning.5Active aspirin 81 mg EC tablet Take 81 mg by mouth in the morning.2Active vitamin E, dl,tocopheryl acet, (vitamin E, dl, acetate,) 1000 Units capsule Take by mouth.Active rosuvastatin (Crestor) 40 mg tablet Indications:Mixed hyperlipidemiaTake 1 tablet (40 mg) by mouth in the morning. 90 tablet ctive atorvastatin (Lipitor) 80 mg tablet Take 80 mg by mouth at bedtime.Discontinued(Ineffective) Active Problems ProblemNoted DateDiagnosed DateAortic valve mzlnttgu01/05/2025Diabetes mellitus 07/10/2025Elevated PSA07/10/2025Encounter for other preprocedural examination 07/10/20250684Yszasphu34/05/2025 Overview (07/10/2025): Problem List clean-up per request of Phys. EHR Cmte Heart trwbgxhofekz80/05/2025 Overview (07/10/2025): Problem List clean-up per request of Phys. EHR Cmte Herpes amctrw8307/10/20251072Xysqdnrngtslem88/05/2025Microscopic ucdurotbn77/05/2025 Malignant neoplasm of /05/2025Prostate cancer metastatic to intraabdominal lymph node07/10/2025Secondary malignant neoplasm of unspecified lung07/10/2025Renal hajivtfi41/05/2025Solitary pulmonary bxllix4407/10/2025 Lkwgsznv42/05/2025 Encounters DateTypeDepartmentCare VbkpBsmdwzkncym81/05/2025 2:45 PM ESTOffice Visit [facility] [place] [address] [place] [address] Gerry Tariq MD Nonrheumatic aortic valve stenosis (Primary Dx); Mixed hyperlipidemia; Other chest pain; Non-rheumatic mitral regurgitationfrom Last 3 Months Family History Medical HistoryRelationNameCommentsCancerBrotherHeart attackBrotherdefibrillator Brotherabdominal aortic aneurysmFatherDiabetes type IIMotherHeart failureMother NephrolithiasisMotherRelationNameStatusCommentsBrotherFatherMotherDeceased Social History Tobacco UseTypesPacks/DayYears UsedDateSmoking Tobacco: FormerCigarettes Smokeless Tobacco: Never Tobacco Cessation:Counseling Given: Not Answered ID Safety & EnvironmentAnswerDate RecordedFear of Current or Ex-PartnerNot on file01/31/2024Emotionally AbusedNot on file01/31/2024hysically AbusedNot on file01/31/2024Sexually AbusedNot on file01/31/2024hysically or Sexually Abused Not on file01/31/2024Sex and Gender InformationValueDate RecordedSex Assigned at JeqrxHhbg69/05/2025 2:41 PM ESTLegal KcgAhro7101/31/2024 1:18 PM EDTGender JwehixgxTowd27/05/2025 2:41 PM ESTSexual OrientationHeterosexual or Straight 07/10/2025 2:41 PM EST Last Filed Vital Signs Vital SignReadingTime TakenCommentsBlood Ncukhnms790/8812 3:56 PM EST Wehtk101307/10/2025 3:56 PM ESTTemperature--Respiratory Rate--Oxygen Sfdbxtzqqn49% 07/10/2025 3:56 PM ESTInhaled Oxygen Concentration--[place]54.6 kg (138 lb) 07/10/2025 3:56 PM OOLNxkolu422.6 cm (5' 6 )07/10/2025 3:56 PM ESTBody Mass Index22.27109/10/2024 3:56 PM EST Plan of Treatment Health MaintenanceDue DateLast DoneCommentsDiabetes: Hemoglobin A1C1950 Medicare Annual Wellness (AWV)1950Diabetes: Retinopathy Screening 1959Depression Hbadiqqme55/16/1961Diabetes: Urine Protein Screening 1968Fall Risk Itwvrvlhl33/16/2014COVID-19 Vaccine (3 - Pfizer risk series) /, 03/08/2021, 1Adult Ermqgzz53 Pneumococcal Vaccine: 50+ HxnxaWrpvziyiz90/03/2018, 07/06/2017, 01/13/2015, Additional history existsZoster HefuthemFotanorue03/10/2020, 05/30/2019, 05/19/2015Influenza RmsvykqTsdpgbqnx14/10/2025, 06/30/2024, 07/06/2023, Additional history existsHIB VaccinesAged OutNo longer eligible based on patient's age to complete this topicHPV VaccinesAged OutNo longer eligible based on patient's age to complete this topicIPV VaccinesAged OutNo longer eligible based on patient's age to complete this topicMeningococcal B VaccineAged OutNo longer eligible based on patient's age to complete this topicMeningococcal VaccineAged OutNo longer eligible based on patient's age to complete this topic Rotavirus VaccinesAged OutNo longer eligible based on patient's age to complete this topic Insurance Care Teams Team MemberRelationshipSpecialtyStart DateEnd Date Florentin Vides MD [address] [place] [address] PCP - Jarehhb33/3/25
--- OUTSIDE RECORDS SUMMARY | 2025-07-22 09:38 | XMS_ITS | Clinical Summary ---
Author Organization [facility] Address [address] [place] [address] Care Team Providers Care Manager Software Development Name Role Phone Florentin Vides MD Primary Care Provider [phone] Allergies Active AllergyReactionsCriticalityNoted CujcGeobpcjjYghrfxzoblv27/29/2024 Medications MedicationSigDispense QuantityRefillsLast FilledStart DateEnd DateStatus atorvastatin (Lipitor) 80 MG tablet 1 (one) time each day at the same time12/04/2014ctive B Complex Vitamins (vitamin B complex) tablet Active coenzyme Q-10 100 MG capsule Take 100 mg by mouth in the morning and 100 mg in the evening.Active omega-3 (fish oil) 1000 MG capsule Take 2 g by mouth in the morning and 2 g in the evening.Active vitamin E (E 1000) capsule Take by mouthActive aspirin 81 MG EC tablet Take 81 mg by mouth every other dayActive Active Problems No known active problems Family History Medical HistoryRelationNameCommentsCancerBrotherRandy NelsonDiabetesMotherLois NelsonRelationNameStatusCommentsBrotherRandy NelsonMotherLois Andrew Social History Tobacco UseTypesPacks/DayYears UsedDateSmoking Tobacco: NeverSmokeless Tobacco: Never Comments:I quit smoking 35 y ears ago Alcohol UseStandard Drinks/WeekCommentsNever0 (1 standard drink = 0.6 oz pure alcohol)Sex and Gender InformationValueDate RecordedSex Assigned at BirthNot on fileLegal MvkVndw9110/18/2022 8:15 PM EDTGender IdentityNot on fileSexual OrientationNot on file Last Filed Vital Signs Vital SignReadingTime TakenCommentsBlood Zmfzjsjo982/9104 12:00 PM EDT Pulse--Qqtyrudzexn50.2 ??C (97.1 ??F)11/30/2023 11:12 AM EDTRespiratory Rate-- Oxygen Saturation--Inhaled Oxygen Concentration--[place]09.3 kg (133 lb) 11/30/2023 11:12 AM YZERzmqvy352.1 cm (5' 5 )11/30/2023 11:12 AM EDTBody Mass Index22.13011/30/2023 11:12 AM EDT Plan of Treatment Not on file Insurance Care Teams Team MemberRelationshipSpecialtyStart DateEnd Date Florentin Vides MD [address] [place] [address] PCP - GeneralFamily Medicine10/22/23
--- NOTE | 2025-07-22 09:45 | NM_ITS ---
Patient Name: CHERYL MANN MR#: [id number] : 1950 Exam Date: 07/22/2025 Ordering Doctor: DR ANASTACIA COSTA M.D. RADIOLOGY REPORT PROCEDURE: NM YURIDIA PERF SPECT REST STR COMPARISON: None. INDICATIONS: CHEST PAIN TECHNIQUE: Exam Description: Stress/Rest one day protocol gated SPECT Rest Imagin.0 mCi Tc-99m Cardiolite IV on 07/22/2025 Stress Imaging 30.3 mCi Tc-99m Cardiolite IV on 07/22/2025 Exercise Protocol: 0.4 mg Lexiscan given IV Heart Rate (bpm): Rest: 83 Max: 133 PMHR: 92 Blood Pressure: Rest: 145/88 Max: 145/88 Symptoms: Rest and peak stress ECG findings were pending, and the exercise portion of the study was pending per attending physician [facility]. For more details, please see separate cardiac stress test report. FINDINGS: QUALITY OF STUDY: Good PERFUSION DEFECT: LOCATION: N/A SIZE: N/A SEVERITY: N/A TYPE: N/A WALL MOTION: Normal wall motion LV SIZE: 48 mL. TID / TCD: 0.9 LVEF: Calculated EF 66%. SUMMARY: Myocardial perfusion imaging study is normal CONCLUSION: 1. Myocardial perfusion is normal with soft tissue attenuation 2. Global left ventricular systolic function is normal 3. No significant transient ischemic dilatation Dictated by: Tito Deluca M.D. on 07/23/2025 at 15:02 Approved by: Tito Deluca M.D. on 07/23/2025 at 15:04
--- NOTE | 2025-07-22 11:56 | PC.NURSE ---
Patient tolerated Lexiscan stress test without problems. No symptoms reported during test. Symptom free when leaving the stress lab.
[2025-07-22] MEDS: REGADENOSON 0.4 MG/5 ML SYRINGE IV (12:00)
--- NOTE | 2025-07-22 13:00 | CA_ITS ---
Patient Name: CHERYL MANN MR#: [id number] : 1950 Exam Date: 07/22/2025 Ordering Doctor: DR GERRY COSTA M.D. ECHOCARDIOGRAM REPORT PROCEDURE: CA ECHO DOPPLER COMPLETE INDICATIONS: Nonrheumatic aortic valve stenosis, prostate cancer, lung cancer - radiation COMPARISON: None. DESCRIPTION: COMPLETE ECHOCARDIOGRAM Real-time transthoracic echocardiography with 2D, M-mode, spectral and color flow Doppler performed. QUALITY: Technical quality was good. LEFT VENTRICLE: Normal chamber size. Moderate to severe concentric hypertrophy. Hyperdynamic systolic function. Estimated left ventricular ejection fraction is 70-75%. Mildly increased intracavitary velocities related to hyperdynamic contractility. LV EF: Hyperdynamic left ventricular ejection fraction, (70-75%). DIASTOLIC: ATRIAL SEPTUM: Visually appears intact. LEFT ATRIUM: Normal chamber size. RIGHT ATRIUM: Normal chamber size. RIGHT VENTRICLE: Normal chamber size. Normal right ventricular systolic function. TRICUSPID VALVE: Normal mobility and thickness. No stenosis with mild regurgitation. No evidence of pulmonary hypertension. RVSP 34 mmHg MITRAL VALVE: Severely thickened with decreased mobility. Moderate mitral valve stenosis. Mild mitral annular calcification. Trivial mitral regurgitation. MVA 1.7 cm2, PHT 161 ms, Mean gradient 7 mmHg. AORTIC VALVE: Normal trileaflet appearance. Severely calcified aortic valve. Severely diminished mobility. Doppler velocity suggest moderate to severe aortic valve stenosis. DVI 0.3, WILLIAM 1.0 cm2, Vmax 2.99 m/s, peak/mean PG 36/20 mmHg. No aortic regurgitation. AORTIC ROOT: Normal diameter and appearance, measuring 3.5 cm. Aortic arch is normal in size. PULMONIC VALVE: Normal thickness and mobility. No stenosis. Trivial regurgitation. PERICARDIUM: No evidence of pericardial effusion. IVC: Collapses with inspiration. PLEURA: CONCLUSION: 1. Moderate to severe concentric left ventricular hypertrophy with hyperdynamic systolic function. Estimated LVEF is 70 to 75%. 2. Normal right ventricular size and systolic function. 3. Severely calcified aortic valve with moderate to severe stenosis. 4. Moderate mitral valve stenosis. 5. A transesophageal echocardiogram is recommended for better characterization of the valvular disease. Adult Echocardiography Procedure Report Left Ventricle LVEDD (3.7 - 5.6 cm): 3.80 cm LVESD (2.2 - 4.0 cm): 2.91 cm LVIVS thickness (0.6 - 1.2 cm): 1.51 cm LVPW thickness (0.5 - 1.0 cm): 1.54 cm LVOT Max Gradient: 4.69 mm[Hg] LVOT Area (cm2): 1.08 m/s Peak Velocity (LVOT): 1.08 m/s Mean Velocity (LVOT): 0.72 m/s LVOT Diameter 1.98 cm Left Ventricular Ejection Fraction: 70-75 % Left Atrium LA Volume Index (2D A2C): 26.47 ml/m2 Mitral Valve MV E to A Ratio: 0.61 Mitral Valve A-Wave Peak Velocity: 1.91 m/s Mitral Valve E-Wave Peak Velocity: 1.16 m/s Right Ventricle Aorta AO Root Diam: 3.52 cm Aortic Valve AoV Area (Peak Sebastian): 1.12 cm2, 1.12 cm2 AoV Area (VTI): 1.30 cm2, 1.30 cm2 Peak Velocity(Antegrade Flow): 2.99 m/s, 2.74 m/s Peak Gradient(Antegrade Flow): 35.65 mm[Hg], 30.13 mm[Hg] Mean Velocity(Antegrade Flow): 1.98 m/s, 1.63 m/s Mean Gradient(Antegrade Flow): 19.71 mm[Hg], 13.44 mm[Hg] Velocity Time Integral: 42.96 cm, 38.24 cm Tricuspid Valve Peak Velocity (Regurgitant Flow): 2.79 m/s, 2.27 m/s, 2.41 m/s Pulmonic Valve Mean Gradient: 4.72 mm[Hg] Mean Velocity: 1.00 m/s Peak Velocity: 1.54 m/s Peak Gradient: 9.47 mm[Hg] Right Atrium Right Atrium Systolic Pressure: 27.25 ml, 27.25 ml Dictated by: Gerry Costa M.D. on 07/22/2025 at 20:27 Approved by: Gerry Costa M.D. on 07/22/2025 at 20:40
--- NOTE | 2025-07-22 14:19 | PM.STRESS ---
Stress Test Stress Test Requesting physician: ANASTACIA COSTA Procedure: Lexiscan stress test General Information: Reason for Stress Test: chest pain Cardiac History and Risk Factors: hyperlipidemia, family history, remote smoking Resting 12 - Lead Electrocardiogram: Normal sinus rhythm 83 bpm, normal EKG Stress Test: Protocol: Lexiscan Exercise Capacity: NA Blood Pressure Response: Normal for lexiscan-no change Rhythm: normal sinus rhythm with occasional atrial premature beats ST - Response: no change Patient Response: no symptoms Interpretation: No symptoms or STT wave changes on the EKG were noted during lexiscan infusion. Occasional atrial premature beats observed. Nuclear images will be reported separately.
== END 2025-07-22 09:36 | disposition home or self-care (01) ==
LOC: NM 09:36
PROVIDERS: PCP Family Medicine; Visit Provider Internal Medicine Interventional Cardiology
DX: R07.89 Other chest pain (principal); I35.0 Nonrheumatic aortic (valve) stenosis; I34.0 Nonrheumatic mitral (valve) insufficiency
CPT/HCPCS: 78452; 93017; 93306; A9500; J2785